=== PATIENT | female | born 1945 | race Caucasian/White ===

== ENCOUNTER 2022-11-20 16:00 | Outpatient (REF) | payer OTHER, SELFPAY | END 2022-11-20 16:01 | disposition home or self-care (01) | LOC: LBN 16:00 | PROVIDERS: Visit Provider Urology | DX: R82.998 Other abnormal findings in urine (principal); N99.81 Other intraoperative complications of genitourinary system; N32.89 Other specified disorders of bladder | CPT/HCPCS: 87077; 87086; 87186 ==

== ENCOUNTER 2022-11-24 06:00 | Day surgery (SDC) | payer OTHER, SELFPAY ==
[2022-11-24 06:13] VITALS: BP 138/76; PULSE 87; RESP 18; TEMP 36.5; O2SAT 97
--- NOTE | 2022-11-24 07:01 | W.ANESPRE ---
General Info Date of Service Date Performed: 11/24/22 Height: 4 ft 11 in Weight: 59.3 kg Body Mass Index (BMI): 26.4 Surgical Procedure: Operation Date: 11/24/22 07:40 Proposed Procedure Side Surgeon p Cystogram Kenny Chapman MD Meds Allergies and Home Medications Allergies Allergy/AdvReac Type Severity Reaction Status Date / Time acetaminophen Allergy Unverified 11/24/22 06:30 [From Tylenol-Codeine #3] codeine Allergy Unverified 11/24/22 06:30 [From Tylenol-Codeine #3] Home Medication Medication Instructions Recorded atorvastatin 40 mg tablet 40 mg PO DAILY 11/20/22 clopidogrel 75 mg tablet (Plavix) 75 mg PO DAILY 11/20/22 donepezil 5 mg tablet (Aricept) 5 mg PO DAILY 11/20/22 ferrous sulfate 325 mg (65 mg 325 mg PO DAILY 11/20/22 iron) tablet oxybutynin chloride 5 mg tablet 5 mg PO DAILY 11/20/22 pantoprazole 40 mg tablet,delayed 40 mg PO DAILY 11/20/22 release potassium chloride 20 mEq 20 meq PO DAILY 11/20/22 tablet,extended release sertraline 100 mg tablet 100 mg PO DAILY 11/20/22 [facility] Active Problems Active Problems: Problem Status Onset Code Intraoperative bladder injury N99.81 Medical History Medical History Bowel obstruction Colostomy in place GERD (gastroesophageal reflux disease) Hyperlipidemia Hypertension TIA (transient ischemic attack) Medical History Comments:: pt with indwelling davis catheter and colostomy bag in place. Surgical History Surgical History H/O bladder repair surgery H/O colectomy Tobacco Smoking/Tobacco Use Status: Never Alcohol Alcohol Intake: former Substance Use Substance use type: does not use Vital Signs and Lab Results Vital Signs Most Recent Vital Signs in EMR: Most Recent Vital Signs Temp Pulse Resp BP Pulse Ox 36.5 C 87 18 138/76 97 11/24/22 06:13 11/24/22 06:13 11/24/22 06:13 11/24/22 06:13 11/24/22 06:13 Lab Results Blood Type / Crossmatch: No Data to Display Complete Blood Count: No Data to Display Complete Metabolic Panel: No Data to Display Liver Function Panel: No Data to Display Coagulation Panel: No Data to Display Cardiac Panel: No Data to Display Arterial Blood Gas: No Data to Display Venous Blood Gas: No Data to Display Pancreas Panel: No Data to Display Thyroid Panel: No Data to Display Infectious Disease: No Data to Display Blood Cultures: No Data to Display Toxicology Panel: No Data to Display Anesthesia Assessment and Plan Anesthesia History Personal History: No History of Anesthesia Complications Family History: No Family History of Anesthesia Complications Implantable Cardiac Device Does patient have a Pacemaker or an ICD?: No
--- NOTE | 2022-11-24 07:04 | W.PM.HP.N ---
Date of service: 11/24/22 Time of Service: 07:04 Assessment and Plan Assessment and plan (1) Intraoperative bladder injury: Status: Acute Assessment and plan: We will perform a cystogram utilizing fluoroscopy and remove her catheter if her bladder injury has healed as expected. Based on her preprocedural urine culture, we will give her a preoperative dose of oral Bactrim for prophylaxis. History of Present Illness History of Present Illness Chief Complaint: Bladder injury Narrative: This is a 77-year-old woman who presented to an outside hospital with abdominal pain and bloating. She was found to have an obstructing colon lesion. She underwent a bowel resection and creation of colostomy. I do not have access to her surgical pathology just yet, but the family was told that the obstructing lesion was benign. At some point during her hospital stay, there was some type of imaging that raised the possibility of a vesicovaginal fistula. I do not have access to her old films as of yet. Intraoperatively, a bladder injury was noted. The bladder injury was closed primarily and a Davis catheter was left in place. The recommendation at the time of the patient's discharge was for a cystogram about 2 weeks after the initial surgery and catheter removal 3 weeks after the initial injury if the bladder had healed. The patient has since moved to our area to be closer to family. She presents today to have the cystogram done under fluoroscopy and potentially have her catheter removed. Review of Systems Narrative: No fevers or chills No vision change or dysphasia No diabetes or thyroid dysfunction No shortness of breath, cough or hemoptysis No chest pain or palpitations Hx GERD. Has colostomy. No nausea or vomiting No seizures, strokes or peripheral neuropathy No bleeding disorders or anemia No gout PFSH All Active Problems Intraoperative bladder injury (Acute) Medical History Bowel obstruction Colostomy in place GERD (gastroesophageal reflux disease) Hyperlipidemia Hypertension TIA (transient ischemic attack) Surgical History H/O bladder repair surgery H/O colectomy Social History Smoking/Tobacco Use Status: Never Smoking risk assessment performed?: Yes Alcohol Intake: former Substance use type: does not use Do you feel safe at home: Yes Do you feel safe in your relationship?: Yes Meds Allergies and Home Medications Allergies Allergy/AdvReac Type Severity Reaction Status Date / Time acetaminophen Allergy Unverified 11/24/22 06:30 [From Tylenol-Codeine #3] codeine Allergy Unverified 11/24/22 06:30 [From Tylenol-Codeine #3] Home Medications Medication Instructions Recorded Confirmed Type atorvastatin 40 mg tablet 40 mg PO DAILY 11/20/22 11/24/22 History clopidogrel 75 mg tablet (Plavix) 75 mg PO DAILY 11/20/22 11/24/22 History donepezil 5 mg tablet (Aricept) 5 mg PO DAILY 11/20/22 11/24/22 History ferrous sulfate 325 mg (65 mg 325 mg PO DAILY 11/20/22 11/24/22 History iron) tablet oxybutynin chloride 5 mg tablet 5 mg PO DAILY 11/20/22 11/24/22 History pantoprazole 40 mg tablet,delayed 40 mg PO DAILY 11/20/22 11/24/22 History release potassium chloride 20 mEq 20 meq PO DAILY 11/20/22 11/24/22 History tablet,extended release sertraline 100 mg tablet 100 mg PO DAILY 11/20/22 11/24/22 History Exam Const General: cooperative Resp Effort & Inspection: normal respiratory effort Auscultation: clear to auscultation bilaterally Cardio Rate: regular rate Rhythm: regular rhythm GI Palpation: soft and no masses Other: davis catheter in place Results Last Vital Signs Temp 36.5 C 11/24/22 06:13 Pulse 87 11/24/22 06:13 Resp 18 11/24/22 06:13 BP 138/76 11/24/22 06:13 Pulse Ox 97 11/24/22 06:13 Time Spent Time spent with Patient: <40 minutes Time was spent: other
[2022-11-24] MEDS: Sulfameth/Trimeth DS TAB 1 TAB PO (07:18)
[2022-11-24] MEDS: Omnipaque 300 MG/ML 50 ML BTL ×2 (07:49)
--- NOTE | 2022-11-24 07:51 | DI.RAD_ITS ---
Exam(s) RF CYSTOGRAM EXAM: RF CYSTOGRAM CLINICAL HISTORY: cystogram in OR TECHNIQUE: 2D and realtime digital imaging was performed. CONTRAST MATERIAL: Refer to procedure report. COMPARISON: No exams were available for comparison FINDINGS: Fluoroscopy was provided for Dr. Chapman during the performance of a cystogram in the OR. Please refe r to the procedure report for complete details. Ka,r=4.83 mGy IMPRESSION: RADIATION DOSE DELIVERED:
--- NOTE | 2022-11-24 07:54 | W.PM.DSUDISC ---
Date of service: 11/24/22 Time of Service: 07:54 Discharge Plan Disposition Condition: Stable Discharge Details Reason For Visit: cystogram Attending Provider: Kenny Chapman Primary Care Provider: Unknown,Unknown Home Meds and New Rx's Prescriptions: No Action clopidogrel [Plavix] 75 mg tablet 75 mg PO DAILY donepezil [Aricept] 5 mg tablet 5 mg PO DAILY ferrous sulfate 325 mg (65 mg iron) tablet 325 mg PO DAILY oxybutynin chloride 5 mg tablet 5 mg PO DAILY pantoprazole 40 mg tablet,delayed release (DR/EC) 40 mg PO DAILY sertraline 100 mg tablet 100 mg PO DAILY potassium chloride 20 mEq tablet extended release 20 meq PO DAILY atorvastatin 40 mg tablet 40 mg PO DAILY Discharge Instructions Additional Instructions: take antibiotic for 3 additional days followup 4 to 6 weeks Activity:: Activity as Tolerated Shower/Bathe:: 24 hours Diet:: As Tolerated DS: Diagnosis Discharge Diagnosis (1) Intraoperative bladder injury: Status: Acute
--- NOTE | 2022-11-24 07:55 | ROE_ITS ---
Date of service: 11/24/22 Time of Service: 07:56 Operative Note Operative Note DATE OF PROCEDURE: 11/24/22 PRE-OP DIAGNOSIS: Bladder injury POST-OP DIAGNOSIS: same PROCEDURE: cystogram SURGEON: Kenny Chapman ANESTHESIA TYPE: Local By Surgeon Refer to Anesthesia Record ESTIMATED BLOOD LOSS: 0 PATHOLOGY: none sent COMPLICATIONS: None Patient was transported to: same day Patient's condition: stable Implants: none Indications: This is a 77-year-old woman who presented to an outside hospital with abdominal distention and abdominal pain. She was found to have an obstructing lesion in the colon. She underwent exploratory laparotomy, bowel resection and creation of a colostomy. During the procedure, bladder injury was identified and was repaired primarily. The recommendation was to follow-up with a cystogram 2 weeks later and to have the catheter removed in 3 weeks. Since being discharged from the outlying facility, she has relocated to our area to be closer to her son and [id number]. The cystogram had not yet been completed so she presents now for cystogram and possible catheter removal Findings: No evidence of urinary extravasation Procedure Description: The patient was brought to the operating room/radiology suite on 11/24/2022. She was placed in the supine position. A b2b outside sales representative film was obtained using fluoroscopy. The bladder was then filled with Omnipaque through her indwelling catheter. We used gravity filling and intermittent fluoroscopy. We instilled a total of 150 cc of solution. We performed oblique and lateral films with the bladder full and after the bladder was drained. There was no evidence of extravasation or outlying of contrast in the patient's bowel. With a reassuring cystogram, we went ahead and deflated her catheter balloon and removed her catheter. She tolerated the procedure with no complications and was returned to the day surgery unit.
[2022-11-24 07:58] VITALS: BP 147/79; PULSE 96; RESP 16; TEMP 36.8; O2SAT 96
== END 2022-11-24 08:30 | disposition home or self-care (01) ==
PROVIDERS: Visit Provider Urology
PROC: 0TJB8ZZ Inspection of Bladder, Via Natural or Artificial Opening Endoscopic (ICD-10-PCS; CPT 52000; principal; 2022-11-24 07:30)
DX: Z09 Encounter for follow-up examination after completed treatment for conditions other than malignant neoplasm (principal); N99.81 Other intraoperative complications of genitourinary system
CPT/HCPCS: 51600; 74450; 74430; Q9967

== ENCOUNTER 2022-12-04 14:19 | Outpatient (REF) | payer OTHER, SELFPAY ==
[2022-12-04 16:52] LABS: Anion Gap 9.1 mmol/L (3-11); BUN 13 mg/dL (7-18); CO2 25.9 mmol/L (21.0-32.0); CREATININE 0.7 mg/dL (0.55-1.02); Calcium 8.6 mg/dL (8.5-10.1); Chloride 108 mmol/L (98-107); Estimated GFR 87.92 (mL/min/1.73m2); Glucose 93 mg/dL (74-106); Potassium 3.5 mmol/L (3.5-5.1); Sodium 143 mmol/L (136-145)
== END 2022-12-04 14:20 | disposition home or self-care (01) ==
LOC: NCHCN 14:19
PROVIDERS: Visit Provider Nurse Practitioner Family
DX: R89.8 Other abnormal findings in specimens from other organs, systems and tissues (principal)
CPT/HCPCS: 80048

== ENCOUNTER 2022-12-11 14:54 | Outpatient (REF) | payer OTHER, SELFPAY ==
[2022-12-11 16:13] LABS: HCT 38.6 % (36.0-46.0); HGB 11.9 g/dL (11.2-15.7); MCH 26.6 pg (27.0-33.0); MCHC 30.8 % (32.0-36.0); MCV 86 fL (80-95); MPV 9.2 fL (8.0-11.0); Platelet Count 314 10^3/uL (130-400); RBC 4.48 10^6/uL (3.93-5.22); RDW 16.9 % (11.7-14.6); RDW-SD 53.6 fL; WBC 5.82 10^3/uL (4.4-10.8)
[2022-12-11 16:48] LABS: ALT 37 U/L (14-59); AST 25 U/L (15-37); Albumin 3.4 g/dL (3.4-5.0); Alkaline Phosphatase 111 U/L (46-116); Anion Gap 13.3 mmol/L (3-11); BUN 12 mg/dL (7-18); Bilirubin, Total 0.2 mg/dL (0.2-1.0); CO2 22.7 mmol/L (21.0-32.0); CREATININE 0.8 mg/dL (0.55-1.02); Calcium 8.8 mg/dL (8.5-10.1); Chloride 108 mmol/L (98-107); Glucose 115 mg/dL (74-106); HDL Cholesterol 75 mg/dL (40-60); LDL CHOLESTEROL 40 mg/dL (<100); Potassium 3.8 mmol/L (3.5-5.1); Sodium 144 mmol/L (136-145); Total Protein 6.9 g/dL (6.4-8.2)
[2022-12-11 17:18] LABS: Creatine Kinase 89 U/L (26-192)
== END 2022-12-11 14:55 | disposition home or self-care (01) ==
LOC: NCHCN 14:54
PROVIDERS: Visit Provider Nurse Practitioner Family
DX: I10 Essential (primary) hypertension (principal); E78.5 Hyperlipidemia, unspecified; R79.89 Other specified abnormal findings of blood chemistry
CPT/HCPCS: 80053; 82550; 83721; 85027; 83718

== ENCOUNTER 2023-04-01 19:39 | Outpatient (REF) | payer OTHER, SELFPAY ==
[2023-04-01 20:12] LABS: Bacteria Rare HPF (Negative); C & S Indicated? C&S Done As Ordered; Casts Negative LPF (Negative); Crystals Many Amorphous HPF (Negative); Epithelial Cells Rare HPF (Negative); Mucus Negative (Negative); RBC 0-2 HPF (0-2); WBC 0-2 HPF (0-5)
[2023-04-01 20:20] LABS: Anion Gap 7.3 mmol/L (3-11); BUN 17 mg/dL (7-18); CO2 28.7 mmol/L (21.0-32.0); CREATININE 0.9 mg/dL (0.55-1.02); Calcium 9.2 mg/dL (8.5-10.1); Chloride 105 mmol/L (98-107); Estimated GFR 64.63 (mL/min/1.73m2); Glucose 107 mg/dL (74-106); Sodium 141 mmol/L (136-145)
== END 2023-04-01 19:40 | disposition home or self-care (01) ==
LOC: NCHCN 19:39
PROVIDERS: Visit Provider Nurse Practitioner Family
DX: N39.0 Urinary tract infection, site not specified (principal); I10 Essential (primary) hypertension
CPT/HCPCS: 80048; 87077; 81015; 87086; 87186

== ENCOUNTER 2023-06-02 14:52 | Outpatient (REF) | payer OTHER, SELFPAY ==
[2023-06-02 17:12] LABS: Potassium 4.1 mmol/L (3.5-5.1)
== END 2023-06-02 14:53 | disposition home or self-care (01) ==
LOC: NCHCN 14:52
PROVIDERS: PCP Nurse Practitioner Family; Visit Provider Nurse Practitioner Family
DX: R89.9 Unspecified abnormal finding in specimens from other organs, systems and tissues (principal); K21.9 Gastro-esophageal reflux disease without esophagitis; Z93.3 Colostomy status; M25.562 Pain in left knee
CPT/HCPCS: 84132

== ENCOUNTER 2023-07-15 10:15 | Day surgery (SDC) | payer MEDICARE, SELFPAY ==
--- NOTE | 2023-07-15 10:17 | HPE_ITS ---
Assessment and Plan Assessment and plan (1) Dysphasia: Status: Acute Assessment and plan: Lily is a pleasant 78-year-old female who comes in today for an EGD for some dysphagia. She has a history of peptic ulcer disease. We discussed the procedure in detail as well as the risks, benefits and complications. After conversation she seemed to have a good understanding of both the procedure as well as the possible complications and she wished to proceed. Risks, benefits and complications have been reviewed. Complications include but are not limited to bleeding, pain, perforation, sore throat, aspiration, and adverse reaction to the medications. Questions were entertained and answered to their satisfaction and they wished to proceed. No guarantees were given or implied. Stop Plavix 2 days prior to the procedure Anesthesia: general (without airway) Previous surgical intolerances: No Previous surgical complications: No Pulmonary risk factors: age > 60 Planned procedure: Yes Sleep apnea risks: No Can climb one flight of stairs (12-13 steps) in less than 30 seconds without stopping and without symptoms: Yes The surgery proposed for this patient is: low risk Active cardiac conditions: none Active risk factors: none ASA (acetylsalicylic acid): not used Beta blockers: not used Proceed with upper endoscopy under sedation (2) GERD (gastroesophageal reflux disease): Status: Chronic Qualifiers: Esophagitis presence: esophagitis presence not specified Qualified Code(s): K21.9 - Gastro-esophageal reflux disease without esophagitis History of Present Illness Narrative: Ms Becerra is a pleasant 78 year old female who is here in [facility] today for an EGD because of Dysphagia. Aracely underwent an ex-lap in October for obstructed bowel. She has a colostomy bag in place. She moved here from [place] to be closer to her son. She tells me that she has been having some difficulty swallowing although its not often. The food she has trouble with is randome. It happens maybe 1-2 times a week. When it happens she coughs and drinks some water. She has never had to regurgitate the food. No new symptoms since we saw her in the office. She tells me that she has a history of PUD. It sounds like she underwent an extensive workup, including and EGD and she was started on Medicine. She cant recall what medicine they started her on except that it was expensive and she took it 2 x a day. She is now on pantoprazole 20 mg daily. She denies any hematemesis. She has a remote history of TIA which is why she is on Plavix. I did discuss this case with her primary care physician who feels it is safe for her to stop the Plavix for 2 days prior to her procedure. She denies shortness of breath, chest pain or palpitations with activity. She is still recovering from her exploratory laparotomy in October but is slowly getting stronger. Review of Systems All systems reviewed & are unremarkable except as noted in HPI and below PFSH All Active Problems (Updated 07/15/23 @ 10:21 by Filomena Velasco MD) Dysphasia (Acute) GERD (gastroesophageal reflux disease) (Chronic) Intraoperative bladder injury (Acute) Medical History (Updated 07/15/23 @ 10:21 by Filomena Velasco MD) Arthritis Anxiety Bladder dysfunction Seasonal allergies Mixed incontinence urge and stress Colostomy in place Bowel obstruction TIA (transient ischemic attack) Per son stated this was in 2017 Hyperlipidemia Hypertension Surgical History H/O: hysterectomy H/O bladder repair surgery H/O colectomy (~10/18/22) Social History Smoking/Tobacco Use Status: Never Smoking risk assessment performed?: Yes Alcohol Intake: former Substance use type: does not use Housing: house Current gender identity: female Additional Social history: Unable to assess privately Meds Allergies and Home Medications Allergies Allergy/AdvReac Type Severity Reaction Status Date / Time codeine Allergy Psychosis Unverified 07/14/23 12:09 [From Tylenol-Codeine #3] Home Medications Medication Instructions Recorded Confirmed Type clopidogrel 75 mg tablet (Plavix) 75 mg PO DAILY 11/20/22 07/14/23 History ferrous sulfate 325 mg (65 mg 325 mg PO DAILY 11/20/22 07/14/23 History iron) tablet potassium chloride 20 mEq 20 meq PO DAILY 11/20/22 07/14/23 History tablet,extended release atorvastatin 40 mg tablet 40 mg PO DAILY 05/19/23 07/14/23 History donepezil 5 mg tablet (Aricept) 5 mg PO BID 05/19/23 07/14/23 History escitalopram oxalate 10 mg tablet 10 mg PO DAILY 05/19/23 07/14/23 History pantoprazole 40 mg tablet,delayed 20 mg PO DAILY 05/19/23 07/14/23 History release psyllium husk 0.52 gram capsule 0.52 g PO DAILY 05/19/23 07/14/23 History (Fiber (psyllium husk)) Exam Const General: comfortable and no acute distress Nutritional Appearance: average body habitus Orientation: alert and oriented x3 HENMT Head: normocephalic and atraumatic Resp Effort & Inspection: normal respiratory effort Auscultation: clear to auscultation bilaterally Cardio Rate: regular rate Rhythm: regular rhythm GI Inspection: normal to inspection Palpation: soft, no hepatosplenomegaly and nontender
--- NOTE | 2023-07-15 10:23 | ENDO_ITS ---
Date of service: 07/15/23 Endoscopy Report DATE OF PROCEDURE: 07/15/23 PRE-OP DIAGNOSIS: dysphagia PROCEDURE: EGD with biopsies SURGEON: Filomena Velasco ANESTHESIA TYPE: General:No Airway COMPLICATIONS: None DISPOSITION: same day INDICATIONS: Lily is a pleasant 78-year-old female who comes in today with some dysph agia. She has a history of peptic ulcer disease. We discussed the procedure in detail as well as the risks, benefits and complications. After conversation she seemed to have a good understanding of both the procedure as well as the possible complications and she wished to proceed. Risks, benefits and complications have been reviewed. Complications include but are not limited to bleeding, pain, perforation, sore throat, aspiration, and adverse reaction to the medications. Questions were entertained and answered to their satisfaction and they wished to proceed. No guarantees were given or implied. PROCEDURE DESCRIPTION: After informed consent was obtained the patient was take to the procedure room and placed in a supine position. Monitors were applied and a time out was done. The patients name, date of , procedure type, allergies to medications and metal in their body was reviewed. A bite block was placed and the patient was sedated. Once sedated and comfortable the gastroscope was advanced through the oropharynx which was grossly normal into the esophagus. The proximal and mid- esophagus were []. In the distal esophagus there was [] noted. The scope was advanced into the stomach and through the pylorus into the 3rd portion of the duodenum. The duodenum was noted to be []. Biopsies were done []. The scope was retracted back into the stomach and biopsies were done to rule out H. pylori. There were [] ulcers. The scope was retroflexed. The cardia and fundus were noted to be normal. There [] a hiatal hernia noted. The scope was retracted back into the esophagus and biopsies were done of the GE junction to rule out Zambrano's. The Z line was regular. The GE junction was at [] cm. The scope was removed and the patient was woken up and taken back to [facility] in stable condition. Follow up:
--- NOTE | 2023-07-15 10:24 | W.PM.DSUDISC ---
Date of service: 07/15/23 Discharge Plan Disposition Patient Disposition: Home Condition: Stable Discharge Details Reason For Visit: EGD Attending Provider: Filomena Velasco Primary Care Provider: Juli Sam Home Meds and New Rx's Prescriptions: No Action clopidogrel [Plavix] 75 mg tablet 75 mg PO DAILY ferrous sulfate 325 mg (65 mg iron) tablet 325 mg PO DAILY potassium chloride 20 mEq tablet extended release 20 meq PO DAILY donepezil [Aricept] 5 mg tablet 5 mg PO BID pantoprazole 40 mg tablet,delayed release (DR/EC) 20 mg PO DAILY psyllium husk [Fiber (psyllium husk)] 0.52 gram capsule 0.52 g PO DAILY escitalopram oxalate 10 mg tablet 10 mg PO DAILY atorvastatin 40 mg tablet 40 mg PO DAILY Discharge Instructions Additional Instructions: Findings: Follow up: Please call if you develop: fevers >101.5 Nausea or Vomiting Abdominal pain that is not transient Rectal bleeding that is more then a tbsp A hard abdomen and inability to pass gas DAY SURGERY UNIT POST ENDOSCOPY INSTRUCTIONS Instructions for everyone who is given Anesthesia: For your safety, please do the following for the next 24 Hours: a. Do not drive or operate dangerous equipment b. Do not drink alcohol beverages or use any recreational drugs for the first 24 hours or while taking pain medications. The medications in your body may have a reaction that can be dangerous. c. Do not make any important decisions or sign any important papers 1. Generally there are no restrictions on your activity after a day or so has gone by, but you may feel a bit fatigued for a few days. 2. After you arrive home you may have a light meal and return to a normal diet as you can tolerate it without feeling sick to your stomach. 3. After surgery, you may feel pain or discomfort. This should be only transient, but if it persists please contact your doctor. 4. If there are any questions regarding the findings of your procedure, please feel free to contact your doctor. 6. If you are unable to contact your doctor with a problem, contact the hospital at [phone]. 7. Continue all your regular medications unless directed otherwise. I understand the above instructions and have no questions. Signature of Patient or Responsible Adult Escort Date/Time Name of Responsible Adult Escort Signature of Nurse Date/Time Activity:: Activity as Tolerated Diet:: As Tolerated DS: Diagnosis Discharge Diagnosis (1) Dysphasia: Status: Acute (2) GERD (gastroesophageal reflux disease): Status: Chronic Asessment and Plan: Patient is seen and examined after their endoscopy. Patient has minimal sore throat. They have been able to tolerate liquids. They do not have any Nausea or Vomiting. They are not having any chest pain or shortness of breath. They have been able to pass gas and are not having any abdominal pain or distention. they have not vomited any blood. The vital signs have been stable-see nursing notes. We discussed findings on their endoscopy We reviewed the importance of lifestyle modifications- see diet recommendations We reviewed any new medications that the patient may be prescribed- see medicine reconciliation. Patient will either be sent a letter with the biopsy results or follow up in the office- see discharge instructions Patient was given explicit instructions for emergency follow up post endoscopy- see discharge instructions Patient verbalized understanding and was discharged in stable and satisfactory condition. See nursing notes.
--- OUTSIDE RECORDS SUMMARY | 2023-08-14 15:58 | XMS_ITS | Continuity of Care Document ---
Author Name Unknown Organization [facility] Address [address] [place] [address] Care Team Providers Care Beater Out Name Role Phone ARIELLA MARAVILLA Primary Care Physician Encounter [facility] NBR [id number] Date(s): 04/21/23 - 04/21/[address] [address]- [place] Encounter Diagnosis Alzheimer's disease, unspecified(Final) - Discharge Disposition: Home or Self Care Attending Physician: Khoi Leroy MD Admitting Physician: Khoi Leroy MD Referring Physician: ARIELLA MARAVILLA Allergies, Adverse Reactions, Alerts Substance Reaction Severity Status Tylenol with Codeine #3 Unknown Acti ve Assessment and Plan Future Appointments Future Scheduled Tests Radiology* MRI Brain w/o Contrast 04/08/23 Medications atorvastatin 40 mg oral tablet 40 mg = 1 tab, Oral, Daily Start Date: 02/11/23 Status: Ordered cetirizine 10 mg oral tablet 10 mg = 1 tab, Oral, Daily Start Date: 02/11/23 Status: Ordered clopidogrel 75 mg oral tablet 75 mg = 1 tab, Oral, Daily, 0 Refill(s) Start Date: 02/11/23 Status: Ordered donepezil 5 mg oral tablet 5 mg = 1 tab, Oral, Daily, 0 Refill(s) Start Date: 02/11/23 Status: Ordered escitalopram 10 mg oral tablet 30 EA, 0 Refill(s), TAKE ONE TABLET BY MOUTH EVERY DAY, 0 Refill(s) Start Date: 04/08/23 Status: Ordered ferrous sulfate 325 mg (65 mg elemental iron) oral delayed release tablet 325 mg = 1 tab, Oral, Daily Start Date: 02/11/23 Status: Ordered fluticasone 50 mcg/inh nasal spray 16 g, 0 Refill(s), SPRAY TWO SPRAYS IN EACH NOSTRIL EVERY DAY, 0 Refill(s) Start Date: 04/08/23 Status: Ordered lidocaine 5% patch 1 patches, Topical, every night at bedtime, Apply overnight remove patches after 12 hours Start Date: 02/11/23 Status: Ordered nystatin 0 Refill(s) Start Date: 02/11/23 Status: Ordered nystatin 100,000 units/g topical cream 30 g, 0 Refill(s), APPLY TO RASH IN GROINS TWO TIMES A DAY AFTER GOOD SKIN CARE, 0 Refill(s) Start Date: 04/08/23 Status: Ordered oxybutynin 5 mg oral tablet 90 EA, 0 Refill(s), TAKE ONE TABLET BY MOUTH EVERY DAY, 0 Refill(s) Start Date: 04/08/23 Status: Ordered pantoprazole 40 mg oral delayed release tablet 40 mg = 1 tab, Oral, Daily, 0 Refill(s) Start Date: 02/11/23 Status: Ordered Potassium Chloride (Srd-[id number]-Prg 10) 10 mEq oral tablet, extended release 10 mEq = 1 tab, Oral, TAKE ONE TABLET BY MOUTH EVERY DAY. TAKE AFTER A FULL MEAL, 0 Refill(s) Start Date: 02/11/23 Status: Ordered psyllium 525 mg oral capsule 525 mg = 1 cap, Oral, Daily, PRN as needed for constipation Start Date: 02/11/23 Status: Ordered Refresh 1 drops, Eye-Both, TID, PRN dry eyes, up to 3 times a day Start Date: 02/11/23 Status: Ordered sertraline 100 mg oral tablet 100 mg = 1 tab, Oral, Daily, 0 Refill(s) Start Date: 02/11/23 Status: Ordered Problem List Condition Confirmation Course Effective Dates Status H ealth Status Informant Anxiety Confirmed Active Arthritis Confirmed Active Bladder dysfunction Confirmed Active Colostomy present Confirmed Active Dysphagia Confirmed Active Forgetfulness Confirmed Active GERD (gastroesophageal reflux disease) Confirmed Active History of hysterectomy Confirmed Active Headache upon awakening Confirmed Active Hyperlipemia Confirmed Active Hypertension Confirmed Active Mixed incontinence urge and stress (male)(female) Confirmed Active Preventative health care Confirmed Active Seasonal allergies Confirmed Active TIA (transient ischemic attack) Confirmed Active Results Radiology Reports * Exam Date Time Procedure Performing Provider Status 04/21/23 11:02 AM MRI Brain w/o Contrast DomainUser, Ge nerated; Auth (Verified) Notes: (MRI Brain w/o Contrast) Reason For Exam: Vascular dementia, Alzheimer disease MRI Brain w/o Contrast EXAM DESCRIPTION: MRI Brain w/o Contrast 04/21/2023 INDICATION: VASCULAR DEMENTIA, ALZHEIMER DISEASE TECHNIQUE: Technique: Multiplanar MRI examination of the head including FLAIR and diffusion series. COMPARISON: MRI head without contrast from 06/09/2008 FINDINGS: No intracranial mass effect or midline shift. Diffusion weighted images demonstrate no focal area of acute or recent infarct. Extensive confluent periventricular and subcortical white matter T2 signal prolongation bilaterally. This was seen on remote examination and appears slightly worse since remote examination. Findings likely reflect chronic microangiopathy. Scattered small areas of T2 signal prolongation in the dileep and cerebellum bilaterally likely reflecting chronic microangiopathy as well. Multiple small ovoid foci of T2 signal prolongation in the basal ganglia region bilaterally most consistent with perivascular spaces although remote lacunar infarcts in the basal ganglia region are difficult to exclude. Small remote lacunar infarcts in the thalamus region bilaterally. No extra-axial fluid collection, hydrocephalus or blood breakdown products Cerebellar tonsil position is normal. The pituitary gland demonstrates normal morphology and signal intensity. No significant temporal horn asymmetry. Visualized vascular flow voids and cranial nerves appear within normal limits. The visualized paranasal sinuses are grossly clear. IMPRESSION: No intracranial mass effect or midline shift No acute or recent infarct on diffusion series Extensive confluent periventricular and subcortical white matter changes likely reflecting extensive chronic microangiopathy. This pattern appears slightly worse since remote examination. JOB #: [id number] Final Signed by: Neri Chicas MD Signed (Electronic Signature): 04/21/2023 11:14 am Social History Social History Type Response Tobacco Never tobacco user T obacco Use:. Sex Patient Care team information Care Team Personnel Name: ARIELLA MARAVILLA Position: No Access Member Role: Primary Care Physician Address: Address: [facility] [address] [place], [place] [id number] [place] [address]
--- OUTSIDE RECORDS SUMMARY | 2023-08-14 15:58 | XMS_ITS | Continuity of Care Document ---
Author Name Unknown Organization [facility] Address [address] [place] [address] Care Team Providers Care Dimension Stone Quarry Supervisor Name Role Phone ARIELLA MARAVILLA Dayday Primary Care Physician Encounter [facility] [id number] Date(s): 04/10/23 - 04/10/23 [facility] [address] [place] [address] [place] Discharge Disposition: Home Allergies, Adverse Reactions, Alerts Substance Reaction Severity [...] Start Date: 02/11/23 Status: Ordered Potassium Chloride ([id number]-Tbow-Ean 10) 10 mEq oral tablet, extended release [...] Active TIA (transient ischemic attack) Confirmed Active Social History Social History Type Response Tobacco Never tobacco user T obacco Use:. Sex Patient Care team information Care Team Personnel Name: RONITDaydayARIELLA Position: No Access Member Role: Primary Care Physician Address: Address: [facility] [place] [address] [place]
== END 2023-07-15 10:16 | disposition home or self-care (01) ==
LOC: SUR 08-17 10:15
PROVIDERS: PCP Nurse Practitioner Family; Visit Provider Surgery
DX: Z53.9 Procedure and treatment not carried out, unspecified reason (principal)

== ENCOUNTER 2023-09-03 14:04 | Outpatient (CLI) | payer MEDICARE, SELFPAY ==
--- OUTSIDE RECORDS SUMMARY | 2023-09-03 14:15 | XMS_ITS | Continuity of Care Document ---
Author Name Unknown Organization [facility] Address [address] [place] [phone] Care Team Providers [employer] Name Role Phone Juli Sam Primary Care Physician [phone] Pam Bhandari Unavailable Unavailable Encounter [facility] [id number] Date(s): 08/17/23 - 08/22/[address] [address] Discharge Disposition: Swing Bed Attending Physician: Tyson Bhandari DO Admitting Physician: Tyson Bhandari DO Referring Physician: Juli Sam Allergies, Adverse Reactions, Alerts Substance Reaction Severity Status Tylenol with Codeine #3 Unknown Acti ve Assessment and Plan Future Scheduled Tests Laboratory* SARS-CoV-2 (COVID-19) PCR (GeneXpert) 08/21/23 Functional Status 08/22/23 Assistive Device Gait belt Ambulation Patient Effort Good Ambulation Patient Response Tolerated Ambulation Minutes 20 08/22/23 Personal Care Provided Oral care 08/22/23 Breakfast Percent 25% 08/22/23 ADLs Complete assist Activity Status ADL HOB elevated 08/21/23 Dinner Percent 100% 08/21/23 Lunch Percent 100% 08/21/23 Living Environment Home Environment Lives In: Single level home Performed By: Amanda Mabry 08/18/2023 Lives With: Family Performed By: Amanda Mabry 08/18/2023 Living Situation: Home with family care Performed By: Amanda Mabry 08/18/2023 Lives In Single level home Lives With Family Living Situation Home with family car e Patient's Responsibilities Rehab Health and wellness, Manage Medications, Passenger, Personal ADL Detail Areas of Responsibilities Pt gets meals on wheels, son does most of the backend java developer, does not drive, is independently with ADLs, uses cane for Mod. I mobility Home Equipment Rehab Cane, Grab bars, Shower chair Number of Stairs Inside 0 Number of Stairs Outside 6 Outside Stairs Rail Bilateral Location Bed 1st floor Location Main Bathroom 1st floor Location Kitchen 1st floor Location Laundry 1st floor Prior ADL Status Independent Prior Mobility Status Independent Prior Instrumental ADL Level Assist need ed Prior Cognitive-Communication Skills Ind ependent 08/18/23 Home Barriers None 08/18/23 COVID-19 Screening None Family Member Travel History No recent t ravel Recent Travel History No recent travel Immunizations Given and Recorded Vaccine Date Status Refusal Reason influenza, unspecified formulation 06/02/23 Record ed Medications atorvastatin 40 mg oral tablet 40 mg = 1 tab, Oral, Daily, # 90 tab, 0 Refill(s) Start Date: 08/11/23 Status: Ordered cetirizine 5 mg oral tablet 5 mg = 1 tab, Oral, Daily, PRN as needed for allergy symptoms, # 30 tab, 0 Refill(s) Start Date: 08/11/23 Status: Ordered donepezil 10 mg oral tablet 10 mg = 1 tab, Oral, every night at bedtime, # 90 tab, 0 Refill(s) Start Date: 08/11/23 Status: Ordered erythromycin 500 mg oral tablet 1,000 mg = 2 tab, Oral, TID, Take 2 tabs at 1pm, 2pm and 10pm the night before your surgery, # 6 tab, 0 Refill(s), Pharmacy: [facility] #[id number], 58.9, kg, 08/07/23 12:17:00 EST, Weight Dosing Start Date: 08/10/23 Status: Ordered escitalopram 10 mg oral tablet 10 mg = 1 tab, Oral, Daily, # 30 tab, 0 Refill(s) Start Date: 08/11/23 Status: Ordered ferrous sulfate 325 mg (65 mg elemental iron) oral delayed release tablet 325 mg = 1 tab, Oral, Daily, # 90 tab, 0 Refill(s) Start Date: 08/11/23 Status: Ordered Lubricant Eye Drops ophthalmic solution 0 Refill(s) Start Date: 08/11/23 Status: Ordered metroNIDAZOLE 500 mg oral tablet 1,000 mg = 2 tab, Oral, TID, Take 2 tab at 1pm, 2pm and 10pm the day before your surgery, # 6 tab, 0 Refill(s), Pharmacy: [facility] #[id number], 58.9, kg, 08/07/23 12:17:00 EST, Weight Dosing Start Date: 08/10/23 Status: Ordered pantoprazole 20 mg oral delayed release tablet 20 mg = 1 tab, Oral, Daily, # 90 tab, 0 Refill(s) Start Date: 08/11/23 Status: Ordered potassium chloride 20 mEq oral tablet, extended release 20 mEq = 1 tab, Oral, take 1 tab three times per week, # 30 tab, 0 Refill(s) Start Date: 08/11/23 Status: Ordered psyllium 525 mg oral capsule 525 mg = 1 cap, Oral, Daily, PRN as needed for constipation, # 100 cap, 0 Refill(s) Start Date: 08/11/23 Status: Ordered Tylenol Extra Strength 500 mg oral tablet 1,000 mg = 2 tab, Oral, every 6 hr, PRN as needed for pain, 0 Refill(s) Start Date: 08/11/23 Status: Ordered Mental Status 08/20/23 Eye Opening Response Refugio Spontaneous ly Best Verbal Response Refugio Oriented Best Motor Response Refugio Obeys comman ds Refugio Coma Score 15 Problem List Condition Confirmation Course Effective Dates Status H ealth Status Informant Anxiety Confirmed Active Arthritis Confirmed Active Bladder dysfunction Confirmed Active Bladder spasm Confirmed Active Colostomy Confirmed Active Forgetful Confirmed Active GERD - Gastro-esophageal reflux disease Confirmed Active Headache Confirmed Active Hyperlipidemia Confirmed Active Hypertension Confirmed Active TIA - transient ischemic attack Confirmed Active Procedures Procedure Date Related Diagnosis Body Site Status Procedure on sigmoid colon 1 10/17/22 Completed Repair of bladder 2 10/17/22 Compl eted Carpal tunnel release Com pleted Hysterectomy Completed 1partial colectomy/colostomy. Had sigmoid resection and a partial small bowel resection. 2completed during laparotomy/bowel resection surgery. Results Laboratory List Name Date Automated Diff 08/22/23 CBC w/ Diff 08/22/23 Automated Diff 08/21/23 CBC w/ Diff 08/21/23 Automated Diff 08/21/23 CBC w/ Diff 08/21/23 ABO/Rh 08/20/23 Basic Metabolic Panel 08/18/23 ABO/Rh 08/17/23 Antibody Screen Gel 08/17/23 Basic Metabolic Panel (BMP) 08/17/23 Most recent to oldest [Reference Range]: 1 2 3 WBC [4.80-10.80 x10^3/mcL] 6.00 x10^3/mc L (08/22/23 6:20 AM) 6.70 x10^3/mcL (08/21/23 6:19 PM) 6.14 x10^3/mcL (08/21/23 6:25 AM) RBC [3.90-5.03 x10^6/mcL] 2.83 x10^6/mcL *LOW* (08/22/23 6:20 AM) 2.66 x10^6/mcL *LOW* (08/21/23 6:19 PM) 2.77 x10^6/mcL *LOW* (08/21/23 6:25 AM) Neutro Auto [40.0-74.0 /100(WBCs)] 73.7 /100(WBCs) (08/22/23 6:20 AM) 70.3 /100(WBCs) (08/21/23 6:19 PM) 76.7 /100(WBCs) *HI* (08/21/23 6:25 AM) Lymph Auto [19.0-48.0 /100(WBCs)] 10.7 /100(WBCs) *LOW* (08/22/23 6:20 AM) 15.8 /100(WBCs) *LOW* (08/21/23 6:19 PM) 12.7 /100(WBCs) *LOW* (08/21/23 6:25 AM) Reeves Auto [3.0-10.0 /100(WBCs)] 5.8 /100(WBCs) (08/22/23 6:20 AM) 7.3 /100(WBCs) (08/21/23 6:19 PM) 5.4 /100(WBCs) (08/21/23 6:25 AM) Basophil Auto [0.00-2.00 /100(WBCs)] 0.30 /100(WBCs) (08/22/23 6:20 AM) 0.40 /100(WBCs) (08/21/23 6:19 PM) 0.50 /100(WBCs) (08/21/23 6:25 AM) BUN [7-18 mg/dL] 19 mg/dL *HI* (08/18/23 6:06 AM) 16 mg/dL (08/17/23 11:20 AM) ABO/Rh Type O NEG *Unknown* (08/20/23 9:15 PM) O NEG *Unknown* (08/17/23 11:20 AM) Glucose Level [70-100 mg/dL] 93 mg/dL (08/18/23 6:06 AM) 95 mg/dL (08/17/23 11:20 AM) Potassium Level [3.5-5.1 mEq/L] 3.7 mEq/L (08/18/23 6:06 AM) 3.8 mEq/L (08/17/23 11:20 AM) Baso Absolute [0.00-0.20 x10^3/mcL] 0.02 x10^3/mcL (08/22/23 6:20 AM) 0.03 x10^3/mcL (08/21/23 6:19 PM) 0.03 x10^3/mcL (08/21/23 6:25 AM) MCV [81.0-99.0 fL] 89.4 fL (08/22/23 6:20 AM) 88.7 fL (08/21/23 6:19 PM) 89.9 fL (08/21/23 6:25 AM) MCHC [33.0-36.0 g/dL] 33.6 g/dL (08/22/23 6:20 AM) 33.9 g/dL (08/21/23 6: PM) 33.7 g/dL (08/21/23 6:25 AM) Sodium Level [136-145 mEq/L] 143 mEq/L (08/18/23 6:06 AM) 137 mEq/L (08/17/23 11:20 AM) Lymph Absolute [1.20-3.40 x10^3/mcL] 0.64 x10^3/mcL *LOW* (08/22/23 6:20 AM) 1.06 x10^3/mcL *LOW* (08/21/23 6: PM) 0.78 x10^3/mcL *LOW* (08/21/23 6:25 AM) Hct [36.0-46.0 %] 25.3 % *LOW* (08/22/23 6:20 AM) 23.6 % *LOW* (08/21/23 6:19 PM) 24.9 % *LOW* (08/21/23 6:25 AM) Calcium Level [8.5-10.1 mg/dL] 9.5 mg/dL (08/18/23 6:06 AM) 9.4 mg/dL (08/17/23 11:20 AM) Reeves Absolute [0.11-0.70 x10^3/mcL] 0.35 x10^3/mcL (08/22/23 6:20 AM) 0.49 x10^3/mcL (08/21/23 6:19 PM) 0.33 x10^3/mcL (08/21/23 6:25 AM) MCH [27.1-32.0 pg] 30.0 pg (08/22/23 6:20 AM) 30.1 pg (08/21/23 6:19 PM) 30.3 pg (08/21/23 6:25 AM) Neutro Absolute [1.20-6.70 x10^3/mcL] 4.42 x10^3/mcL (08/22/23 6:20 AM) 4.70 x10^3/mcL (08/21/23 6:19 PM) 4.71 x10^3/mcL (08/21/23 6:25 AM) Hgb [12.0-15.5 g/dL] 8.5 g/dL *LOW* (08/22/23 6:20 AM) 8.1 g/dL *LOW* (08/21/23 6:19 PM) 8.4 g/dL *LOW* (08/21/23:25 AM) MPV [6.0-10.0 fL] 9.2 fL (08/22/23 6:20 AM) 9.2 fL (08/21/23 6:19 PM) 9.8 fL (08/21/23 6:25 AM) Platelets [150-400 x10^3/mcL] 188 x10^3/mcL (08/22/23 6:20 AM) 160 x10^3/mcL (08/21/23 6:19 PM) 159 x10^3/mcL (08/21/23 6:25 AM) CO2 [21-31 mEq/L] 35 mEq/L *HI* (08/18/23 6:06 AM) 24 mEq/L (08/17/23 11:20 AM) Eos Absolute [0.00-0.70 x10^3/mcL] 0.34 x10^3/mcL (08/22/23 6:20 AM) 0.27 x10^3/mcL (08/21/23 6:19 PM) 0.21 x10^3/mcL (08/21/23 6:25 AM) eGFR Non-AA [>=60 mL/min/1.73 m2] 48 mL/min/1.73 m2 *LOW* (08/18/23 6:06 AM) 63 mL/min/1.73 m2 (08/17/23 11:20 AM) eGFR AA [>=60 mL/min/1.73 m2] 59 mL/min/1.73 m2 *LOW* (08/18/23 6:06 AM) 76 mL/min/1.73 m2 (08/17/23 11:20 AM) Chloride Level [98-107 mEq/L] 102 mEq/L (08/18/23 6:06 AM) 101 mEq/L (08/17/23 11:20 AM) BUN/Creat Ratio 17 ratio *NA* (08/18/23 6:06 AM) 18 ratio *NA* (08/17/23 11:20 AM) Imm Gran Absolute [0.00-0.04 x10^3/mcL] 0.23 x10^3/mcL *HI* (08/22/23 6:20 AM) 0.15 x10^3/mcL *HI* (08/21/23 6:19 PM) 0.08 x10^3/mcL *HI* (08/21/23 6:25 AM) Imm Gran Auto 3.8 /100(WBCs) *NA* (08/22/23 6:20 AM) 2.2 /100(WBCs) *NA* (08/21/23 6:19 PM) 1.3 /100(WBCs) *NA* (08/21/23 6:25 AM) Creatinine Level [0.55-1.02 mg/dL] 1.09 mg/dL *HI* (08/18/23 6:06 AM) 0.87 mg/dL (08/17/23 11:20 AM) Antibody Screen Gel Negative ABSC (08/17/23 11:20 AM) RDW-CV [11.6-14.8 %] 13.1 % (08/22/23 6:20 AM) 13.0 % (08/21/23 6:19 PM) 13.1 % (08/21/23 6:25 AM) Anion Gap [5-15 mEq/L] 10 mEq/L (08/18/23 6:06 AM) 16 mEq/L *HI* (08/17/23 11:20 AM) Eos, Auto [1.0-7.0 /100(WBCs)] 5.7 /100(WBCs) (08/22/23 6:20 AM) 4.0 /100(WBCs) (08/21/23 6:19 PM) 3.4 /100(WBCs) (08/21/23 6:25 AM) Vital Signs Most recent to oldest [Reference Range]: 1 2 3 4 5 Temperature Oral [35.8-37.3 Deg C] 37.4 Deg C *HI* (08/22/23 7:40 AM) 36.8 Deg C (08/22/23 4:49 AM) 36.7 Deg C (08/22/23 12:59 AM) Temperature Oral (DegF) [96.4-99.1 Deg F] 98.24 Deg F (08/22/23 4:49 AM) 98.24 Deg F (08/21/23 7:24 PM) 98.42 Deg F (08/20/23 5:49 PM) Temperature Tympanic [36.6-38.1 Deg C] 36.5 Deg C *LOW* (08/17/23 10:13 AM) Apical Heart Rate [60-100 bpm] 91 bpm (08/17/23 10:13 AM) Peripheral Pulse Rate [60-100 bpm] 79 bpm (08/22/23 7:40 AM) 75 bpm (08/21/23 7:24 PM) 82 bpm (08/21/23 3:28 PM) Heart Rate Monitored [60-100 bpm] 67 bpm (08/22/23 4:49 AM) 81 bpm (08/22/23 12:59 AM) 79 bpm (08/21/23 6:16 AM) Respiratory Rate [12-24 br/min] 16 br/min (08/22/23 7:40 AM) 18 br/min (08/22/23 4:49 AM) 18 br/min (08/22/23 12:59 AM) Blood Pressure [90-140/60-90 mmHg] 134/62mmHg (08/22/23 7:40 AM) 126/55mmHg (08/22/23 4:49 AM) 126/53mmHg (08/22/23 12:59 AM) Mean Arterial Pressure, Cuff [70-110 mmHg] 81 mmHg (08/21/23 7:24 PM) 93 mmHg (08/20/23 5:49 PM) 91 mmHg (08/20/23 12:00 PM) Blood Pressure Location Left arm (08/22/23 7:40 AM) Left arm (08/21/23 7:24 PM) Left arm (08/21/23 3:28 PM) Blood Pressure Method Automatic (08/22/23 7:40 AM) Automatic (08/21/23 7:24 PM) Automatic (08/21/23 3:28 PM) Weight Measured (lbs) 137.789 lb (08/22/23 5:34 AM) Weight Dosing 56.400 kg (08/17/23 10:13 AM) BSA Measured 1.57 m2 (08/21/23 8:16 AM) 0 m2 (08/20/23 10:25 AM) 1.57 m2 (08/19/23 8:25 AM) Body Mass Index 27.74 kg/m2 (08/21/23 8:16 AM) 27.69 kg/m2 (08/19/23 8:25 AM) Height 147.32 cm (08/21/23 8:16 AM) 147.32 cm (08/21/23 8:16 AM) 147.32 cm (08/21/23 8:16 AM) 147.32 cm (08/21/23 8:16 AM) Weight 62.5 kg (08/22/23 5:34 AM) 60.2 kg (08/21/23 8:16 AM) 60.2 kg (08/21/23 8:16 AM) 60.2 kg (08/21/23 8:16 AM) 60.2 kg (08/21/23 8:16 AM) Social History Social History Type Response Tobacco Never tobacco user T obacco Use:. Sex Female Progress note * Tyson Bhandari DO: PERFORM Event Display: Progress Note - Physician Authored Date: [id number] NELIA QURESHI :1945 Age:78 years Sex:Female Visit Date:08/17/2023 Primary Care Physician: Juli Sam The patient is doing well today. ??She still has bowel movements she is still incontinent of stool but she is having no nausea or vomiting.?? She is tolerating her diet.?? She is quite comfortable.??Stools are brown. Objective Vitals & Measurements T:??37.4?C ??(Oral)?? TMIN:??36.7?C ??(Oral)?? TMAX:??37.4?C ??(Oral)?? HR:??79??(Peripheral)?? RR:??16?? BP:??134/62?? SpO2:??93%?? WT:??62.5??kg?? Pain Score:??0?? O2 Therapy:??Room air?? Physical Exam Heart is regular. ??Lungs are clear and equal. ??Abdomen is soft and nontender. ??The dressings were taken down and the wounds are all healthy with no signs of infection.?? Bowel sounds are normal active without distention. Lab Results Hemoglobin 8.5. Assessment/Plan Ordered: Diet Order, 08/21/23 17:25:00 EST, Regular The patient is doing quite well and I think can be??discharged from acute care.?? I do think thoughthat she could benefit from swing bed status from a physical therapy??standpoint.?? Will go ahead and set that up.?? Hemoglobin stabilized at 8.5. Electronically Signed on 08/22/23 10:07 AM Tyson Bhandari DO * Tyson Bhandari DO: PERFORM Event Display: Progress Note - Physician Authored Date: [id number] NELIA QURESHI :1945 Age:78 years Sex:Female Visit Date:08/17/2023 Primary Care Physician: Juli Sam The patient has done quite well today.?? She is having brown bowel movements with no signs of blood.?? She has been getting up out of bed fine.?? She is still incontinent of stool and urine.?? She istolerating a full liquid diet without nausea. Objective Vitals & Measurements T:??36.8?C ??(Oral)?? TMIN:??36.6?C ??(Oral)?? TMAX:??36.9?C ??(Oral)?? HR:??82??(Peripheral)?? RR:??18?? BP:??143/71?? SpO2:??96%?? HT:??147.32??cm?? HT:??147.32??cm?? HT:??147.32??cm?? HT:??147.32??cm?? WT:??60.2??kg?? WT:??60.2??kg?? WT:??60.2??kg?? WT:??60.2??kg?? BMI:??27.74?? PainScore:??0?? O2 Therapy:??Room air?? BSA:??1.57?? Physical Exam Heart is regular. ??Lungs are clear and equal. ??Abdomen is soft and nontender. Assessment/Plan Ordered: Protonix, 40 mg, IV Piggyback, Powder-Inj, every 12 hr, Administer over: 15 minutes, First Dose: 08/20/23 19:00:00 EST, Routine, 400 mL/hr, 08/20/23 19:00:00 EST CBC w/ Diff, Blood, Routine, 08/21/23 16:00:00 EST, Once, Lab Collect Diet Order, 08/21/23 17:25:00 EST, Regular SARS-CoV-2 (COVID-19) PCR (GeneXpert), Nasopharyngeal Swab, Routine Collect, *Est. 08/21/23, Once, Nurse collect, Order for future visit, Print Label, Preop testing Patient is doing well. ??Will advance her to a regular diet.?? Will check an H&H on her this evening although looks like the bleeding??has stopped.?? Will see how she is doing tomorrow but possibly place her in a swing bed tomorrow. Electronically Signed on 08/21/23 05:28 PM Tyson Bhandari DO * Tyson Bhandari DO: PERFORM Event Display: Progress Note - Physician Authored Date: [id number] NELIA QURESHI :1945 Age:78 years Sex:Female Visit Date:08/17/2023 Primary Care Physician: Juli Sam Subjective The patient had an eventful night. ??She has had no further bowel movements. ??She has had no further nausea and feels quite good.?? She is tolerating her liquids and in fact did get a yogurt this morning despite having??a clear liquid diet order and tolerated that just fine.?? Her hemoglobin drifted down to 8.5 last night??but remained stable at 8.4 this morning. Objective Vitals & Measurements T:??36.6?C ??(Oral)?? TMIN:??36.6?C ??(Oral)?? TMAX:??36.9?C ??(Oral)?? HR:??79??(Monitored)?? RR:??17?? BP:??133/61?? SpO2:??96%?? WT:??60.2??kg?? Pain Score:??0?? O2 Therapy:??Room air?? BSA:??0?? Physical Exam It is regular. ??Lungs are clear and equal. ??Abdomen is soft and nontender with good bowel sounds. Lab Results White count is normal.?? Hemoglobin of 8.4. Assessment/Plan Ordered: Protonix, 40 mg, IV Piggyback, Powder-Inj, every 12 hr, Administer over: 15 minutes, First Dose: 08/20/23 19:00:00 EST, Routine, 400 mL/hr, 08/20/23 19:00:00 EST CBC w/ Diff, Blood, Routine, 08/21/23 16:00:00 EST, Once, Lab Collect Diet Order, 08/21/23 8:13:00 EST, Full Liquid The patient is doing reasonably well and we will advance her again to a full liquid diet.?? My concern is that she did have a upper GI bleed.?? I have stopped the Lovenox and the Toradol. ??Will makesure she is ambulating using the SCDs for DVT prophylaxis.?? She is also on Protonix twice a day.??I put some thought into whether to do an EGD on her sometime in the next couple days, but I think if she shows no further signs of bleeding, I am going to hold off on doing that for a little bit??only because??she does still have a little bit of an ileus??and??I am??not sure if her stomach is emptying completely which would put her at risk for aspiration??with sedation.?? Obviously if she shows signs of further bleeding??we will need to??just proceed with the EGD. Electronically Signed on 08/21/23 08:20 AM Tyson Bhandari DO Patient Care team information Care Team Personnel Name: Pam Bhandari Position: Ambulatory - Wire Machine Operator Member Role: Wire Machine Operator Name: Juli Sam Position: No Access Member Role: Primary Care Physician Address: Address: [address] [place] [address]
--- OUTSIDE RECORDS SUMMARY | 2023-09-03 14:15 | XMS_ITS | Continuity of Care Document ---
Author Name Unknown Organization [facility] Address [address] [place] [phone] Care Team Providers Care Assisted Living Coordinator Name Role Phone Juli Sam Dayday Primary Care Physician Pam Bhandari Unavailable Unavailable Encounter [facility] [id number] Date(s): 09/02/23 - 09/02/[address] [address] Encounter Diagnosis Low blood potassium(Discharge Diagnosis) - 09/02/23 Discharge Disposition: Home or Self Care Allergies, Adverse Reactions, Alerts Substance Reaction Severity Status Tylenol with Codeine #3 Unknown Acti ve Assessment and Plan Future Appointments Future Scheduled Tests Laboratory* SARS-CoV-2 (COVID-19) PCR (GeneXpert) 08/21/23 Immunizations Given and Recorded Vaccine Date Status [...] 0 Refill(s) Start Date: 08/11/23 Status: Ordered escitalopram 10 mg oral tablet [...] 0 Refill(s) Start Date: 08/11/23 Status: Ordered pantoprazole 20 mg oral delayed [...] 0 Refill(s) Start Date: 08/11/23 Status: Ordered Problem List Condition Confirmation Course [...] bowel resection. 2completed during laparotomy/bowel resection surgery. Social History Social History Type Response Tobacco Never tobacco user T obacco Use:. Sex Female Patient Care team information Care Team Personnel Name: Pam Bhandari Position: Ambulatory - Vibrating Screed Operator Member Role: Vibrating Screed Operator Name: Juli Sam Position: No Access Member Role: Primary Care Physician Address: Address: [address] [place] [address]
--- OUTSIDE RECORDS SUMMARY | 2023-09-03 14:15 | XMS_ITS | Continuity of Care Document ---
Author Name Unknown Organization [facility] Address [address] [place] [phone] Care Team Providers Care Monotyper Name Role Phone Juli Sam Primary Care Physician [phone] Pam Bhandari Unavailable Unavailable Encounter [facility] [id number] Date(s): 09/02/23 - 09/02/[address] [address]- [place] Discharge Disposition: Home or Self Care Allergies, [...] Personnel Name: Pam Bhandari Position: Ambulatory - Act English Tutor Member Role: Act English Tutor Name: Juli Sam Position: No Access Member Role: Primary Care Physician Address: Address: [address] [place] [address]
--- OUTSIDE RECORDS SUMMARY | 2023-09-03 14:15 | XMS_ITS | Continuity of Care Document ---
Author Name Unknown Organization [facility] Address [address] [place] [address] Care Team Providers Care Fruit Vendor Name Role Phone Juli Sam Primary Care Physician Pam Bhandari Unavailable Unavailable [facility]counter [facility] [id number] Date(s): 08/22/23 - 08/25/[address] [id number] Discharge Disposition: Home or Self Care Attending Physician: Tyson Bhandari DO Admitting Physician: Tyson Bhandari DO Referring Physician: Juli Sam Allergies, Adverse Reactions, Alerts Substance Reaction Severity Status Tylenol with Codeine #3 Unknown Acti ve Assessment and Plan Future Appointments Future Scheduled Tests Laboratory* SARS-CoV-2 (COVID-19) PCR ([facility]) 08/21/23 Functional Status 08/25/23 Home Equipment Cane 08/25/23 Lunch Percent 100% 08/25/23 Personal Care Provided Diaper/Brief escalera ged, Hair care, Lotion, Adele care, Other: put pt in her clean clothes and packed her belongings to go home. 08/25/23 ADLs Complete assist Activity Status ADL HOB elevated 08/25/23 Breakfast Percent 100% 08/24/23 Dinner Percent 25% 08/24/23 Living Environment Home Environment *ADL: Independent Performed By: Marilee Caceres OT 08/24/2023 *Cognitive-Communication Skills: Independent Performed By: Marilee Caceres OT 08/24/2023 *Instrumental ADL: Assist needed Performed By: Marilee Caceres OT 08/24/2023 *Mobility: Independent Performed By: Marilee Caceres OT 08/24/2023 Detail Areas of Responsibilities: Has assistance from son with IADLs, independent with ADLs and functional mobility (has cane but prefers not to use) Performed By: Marilee Caceres OT 08/24/2023 Lives In: Multilevel home Performed By: Marilee Caceres OT 08/24/2023 Lives With: Other: Son & dtr in law who is an RN Performed By: Marilee Caceres OT 08/24/2023 Living Situation: Home with family care, Other: Mold Shop Supervisor care CFI supports via [facility] Performed By: Marilee Caceres OT 08/24/2023 Patient's Responsibilities: Community mobility, management accounts manager, Health and wellness, Home management, Leisure/Play/Hobbies, Manage Medications, Meal preparation, Passenger, Personal ADL, Retired, Social participation, Unemployed Performed By: Marilee Caceres OT 08/24/2023 Devices/Equipment at Home: Cane Performed By: Khadra Rain 08/24/2023 Lives In Multilevel home Lives With Other: Son & dtr in law who is an RN Living Situation Home with family car e, Other: Mold Shop Supervisor care CFI supports via [facility] Patient's Responsibilities Rehab Persona l ADL Number of Stairs Outside 3 Outside Stairs Rail Bilateral Prior ADL Status Independent Prior Mobility Status Assist needed Prior Instrumental ADL Level Assist need ed Prior Cognitive-Communication Skills Ass ist needed 08/24/23 Detail Areas of Responsibilities Has ass istance from son with IADLs, independent with ADLs and functional mobility (has cane but prefers not to use) 08/24/23 Patient's Responsibilities Health and we llness, Meal preparation, Passenger, Personal ADL 08/24/23 Time Up in Chair 60 08/23/23 Positioning/Pressure Reducing Devices Pi llow 08/23/23 Assistive Device Gait belt Ambulation Patient Effort Fair Ambulation Minutes 10 08/22/23 Family Member Travel History No recent t [...] Start Date: 08/11/23 Status: Ordered Mental Status 08/24/23 Eye Opening Response [place] Spontaneous ly Best Verbal Response Refugio Oriented Best Motor Response [place] Obeys comman ds [place] Coma Score 15 Problem List Condition Confirmation [...] Results Laboratory List Name Date Automated Diff 08/24/23 Basic Metabolic Panel (BMP) 08/24/23 CBC w/ Diff 08/24/23 Most recent to oldest [Reference Range]: 1 WBC [4.80-10.80 x10^3/mcL] 6.93 x10^3/mc L (08/24/23 6:21 AM) RBC [3.90-5.03 x10^6/mcL] 2.81 x10^6/mcL *LOW* (08/24/23 6:21 AM) Neutro Auto [40.0-74.0 /100(WBCs)] 74.5 /100(WBCs) *HI* (08/24/23 6:21 AM) Lymph Auto [19.0-48.0 /100(WBCs)] 12.0 / 100(WBCs) *LOW* (08/24/23 6:21 AM) [place] Auto [3.0-10.0 /100(WBCs)] 6.5 /100 (WBCs) (08/24/23 6:21 AM) Basophil Auto [0.00-2.00 /100(WBCs)] 0.3 0 /100(WBCs) (08/24/23 6:21 AM) BUN [7-18 mg/dL] 10 mg/dL (08/24/23 6:21 AM) Glucose Level [70-100 mg/dL] 104 mg/dL *HI* (08/24/23 6:21 AM) Potassium Level [3.5-5.1 mEq/L] 2.4 mEq/ L 1 *CRIT* (08/24/23 6:21 AM) Baso Absolute [0.00-0.20 x10^3/mcL] 0.02 x10^3/mcL (08/24/23 6:21 AM) MCV [81.0-99.0 fL] 90.0 fL (08/24/23 6:21 AM) MCHC [33.0-36.0 g/dL] 34.0 g/dL (08/24/23 6:21 AM) Sodium Level [136-145 mEq/L] 144 mEq/L (08/24/23 6:21 AM) Lymph Absolute [1.20-3.40 x10^3/mcL] 0.8 3 x10^3/mcL *LOW* (08/24/23 6:21 AM) Hct [36.0-46.0 %] 25.3 % *LOW* (08/24/23 6:21 AM) Calcium Level [8.5-10.1 mg/dL] 7.7 mg/dL *LOW* (08/24/23 6:21 AM) [place] Absolute [0.11-0.70 x10^3/mcL] 0.45 x10^3/mcL (08/24/23 6:21 AM) MCH [27.1-32.0 pg] 30.6 pg (08/24/23 6:21 AM) Neutro Absolute [1.20-6.70 x10^3/mcL] 5. 17 x10^3/mcL (08/24/23 6:21 AM) Hgb [12.0-15.5 g/dL] 8.6 g/dL *LOW* (08/24/23 6:21 AM) MPV [6.0-10.0 fL] 9.6 fL (08/24/23 6:21 AM) Platelets [150-400 x10^3/mcL] 217 x10^3/ mcL (08/24/23 6:21 AM) CO2 [21-31 mEq/L] 32 mEq/L *HI* (08/24/23 6:21 AM) Eos Absolute [0.00-0.70 x10^3/mcL] 0.35 x10^3/mcL (08/24/23 6:21 AM) eGFR Non-AA [>=60 mL/min/1.73 m2] 116 mL /min/1.73 m2 (08/24/23 6:21 AM) eGFR AA [>=60 mL/min/1.73 m2] 141 mL/min /1.73 m2 (08/24/23 6:21 AM) Chloride Level [98-107 mEq/L] 104 mEq/L (08/24/23 6:21 AM) BUN/Creat Ratio 20 ratio *NA* (08/24/23 6:21 AM) Imm Gran Absolute [0.00-0.04 x10^3/mcL] 0.11 x10^3/mcL *HI* (08/24/23 6:21 AM) Imm Gran Auto 1.6 /100(WBCs) *NA* (08/24/23 6:21 AM) Creatinine Level [0.55-1.02 mg/dL] 0.51 mg/dL *LOW* (08/24/23 6:21 AM) RDW-CV [11.6-14.8 %] 13.2 % (08/24/23 6:21 AM) Anion Gap [5-15 mEq/L] 10 mEq/L (08/24/23 6:21 AM) Eos, Auto [1.0-7.0 /100(WBCs)] 5.1 /100( WBCs) (08/24/23 6:21 AM) 1Result Comment: Critical value verified and results called to Dottie Francisco RN [employer] and read backat 08/24/2023 07:17:40 EST by tech: SUSANA Moeller Vital Signs Most recent to oldest [Reference Range]: 1 2 3 Temperature Oral [35.8-37.3 Deg C] 36.9 Deg C (08/25/23 9:05 AM) 36.9 Deg C (08/24/23 7:51 AM) 36.8 Deg C (08/24/23 12:38 AM) Temperature Oral (DegF) [96.4-99.1 Deg F] 98.78 Deg F (08/23/23 4:31 PM) 98.78 Deg F (08/23/23 4:01 AM) Peripheral Pulse Rate [60-100 bpm] 85 bpm (08/25/23 9:05 AM) 86 bpm (08/24/23 7:51 AM) 87 bpm (08/23/23 7:38 AM) Heart Rate Monitored [60-100 bpm] 80 bpm (08/24/23 12:38 AM) 95 bpm (08/23/23 4:31 PM) 92 bpm (08/23/23 4:01 AM) Respiratory Rate [12-24 br/min] 24 br/min (08/25/23 9:05 AM) 18 br/min (08/24/23 7:51 AM) 17 br/min (08/24/23 12:38 AM) Blood Pressure [90-140/60-90 mmHg] 126/68mmHg (08/25/23 9:05 AM) 121/61mmHg (08/24/23 7:51 AM) 126/60mmHg (08/24/23 12:38 AM) Mean Arterial Pressure, Cuff [70-110 mmHg] 78 mmHg (08/23/23 4:01 AM) Blood Pressure Location Left arm (08/25/23 9:05 AM) Left arm (08/24/23 12:38 AM) Left arm (08/23/23 4:31 PM) Blood Pressure Method Automatic (08/25/23 9:05 AM) Automatic (08/24/23 12:38 AM) Automatic (08/23/23 4:31 PM) Mean Arterial Pressure Cuff 68 mmHg (08/23/23 4:31 PM) Weight Measured (lbs) 138.671 lb (08/23/23 4:55 AM) Weight Dosing 62.900 kg (08/23/23 4:55 AM) BSA Measured 1.54 m2 (08/25/23 8:46 AM) Body Mass Index 26.69 kg/m2 (08/25/23 8:46 AM) Height 147.3 cm (08/25/23 8:46 AM) 147.3 cm (08/25/23 8:46 AM) Weight 57.9 kg (08/25/23 8:46 AM) 57.9 kg (08/25/23 8:46 AM) 57.9 kg (08/24/23 6:17 AM) Social History Social History Type Response Tobacco Never tobacco user T obacco Use:. Sex Female Discharge instructions * Estella Coates: PERFORM Event Display: Discharge Instructions Authored Date: [id number] NELIA QURESHI :1945 Age:78 years Sex:Female Visit Date:08/22/2023 Primary Care Physician: Juli [facility] Discharge Instructions We would like to thank you for allowing us to assist you with your healthcare needs. The following includes patient education materials and information regarding your injury/illness. Your Next Steps Instructions From Your Care Team Incisions:?? - Some bruising, swelling, pain and soreness is expected. Symptoms that are worsening are not expected and you should call Dr. Bhandari. - Keep incisions clean and dry, but they do??NOT need to be covered. It is okay to shower, but no tub bathing/swimming for one week from surgery date. Pat-dry the incisions when drying.?? - Call DrIliana??Thony if you experience worsening pain, swelling, redness, pus, bleeding or fever>101.?? - Go to the Emergency Department for chest pain, shortness of breath, difficulty breathing or changes in mental status.? For next few days: -Call and schedule follow-up appointment to be seen next week. -For shortness of breath, chest pain, altered mental status, high fevers or inability to urinate??please go to the emergency department. ? Diet: - Eat and drink normally, but go slowly with frequency and quantity.? Medications:?? - Resume all of your regular home medications. ? Activity: - Light activity and work without any strenuous activity or heavy lifting until cleared at followup. ? Pain:?? -Tylenol and/or ibuprofen as needed. -Ice and heat, if desired,??are okay as well ? For mild irritation at needle site where your iv was removed: ?? Apply warm, moist pack to area for 20 minutes four times a day for 2-3 days. ?? Call physician if persistent redness, increasing redness or fever and/or drainage at needle siteoccurs. ? If you have any problems, concerns or questions after surgery, do not hesitate to contact your physician's office or the Emergency Room if needed at [phone]. ?? For emergencies, call 911.? Dr. Reaves's office number for scheduling or non-emergent questions/concerns: Call [phone] Scheduled Future Appointments Thursday 12:30 PM EST ?? Medications What How Much When Instructions Next Dose Unchanged acetaminophen (Tylenol Extra Strength 500 mg oral tablet) 2 tab Oral (given by mouth) Every 6 hours as needed for as needed for pain Unchanged atorvastatin (atorvastatin 40 mg oral tablet) 1 tab Oral (given by mouth) Every day Unchanged cetirizine (cetirizine 5 mg oral tablet) 1 tab Oral (given by mouth) Every day as needed for as needed for allergy symptoms Unchanged donepezil (donepezil 10 mg oral tablet) 1 tab Oral (given by mouth) Every night at bedtime Unchanged escitalopram (escitalopram 10 mg oral tablet) 1 tab Oral (given by mouth) Every day Unchanged ferrous sulfate (ferrous sulfate 325 mg (65 mg elemental iron) oral delayed release tablet) 1 tab Oral (given by mouth) Every day Unchanged ocular lubricant (Lubricant Eye Drops ophthalmic solution) Unchanged pantoprazole (pantoprazole 20 mg oral delayed release tablet) 1 tab Oral (given by mouth) Every day Unchanged potassium chloride (potassium chloride 20 mEq oral tablet, extended release) 1 tab Oral (given by mouth) take 1 tab three times per week ?? Unchanged psyllium (psyllium 525 mg oral capsule) 1 Capsules Oral (given by mouth) Every day as needed for as needed for constipation ?? What How Much When Why Comments Stop Taking erythromycin (erythromycin 500 mg oral tablet) 2 tab Oral (given by mouth) 3 times a day Diverticulitis Take 2 tabs at 1pm, 2pm and 10pm the night before your surgery ?? Stop Taking metroNIDAZOLE (metroNIDAZOLE 500 mg oral tablet) 2 tab Oral (given by mouth) 3 times a day Diverticulitis Take 2 tab at 1pm, 2pm and 10pm the day before your surgery ?? Your Summary Your Care Team Admitting Physician - Tyson Bhandari DO Attending Physician - Tyson Bhandari DO Primary Care Physician - Juli Sam Referring Physician - Juli Sam Problems Ongoing - Any problem that you are currently receiving treatment for. Anxiety Arthritis Bladder dysfunction Bladder spasm Colostomy Forgetful GERD - Gastro-esophageal reflux disease Headache Hyperlipidemia Hypertension TIA - transient ischemic attack Tests Performed/Pending Automated Diff BMP CBC w/ Diff Discharge Vitals Temperature??(Oral) 98.4 ??F (36.9 ??C) Heart Rate??(Peripheral) 85 Respiratory Rate?? 24 Blood Pressure?? 126/68?? Height?? 57.99 in (147.3 cm) Height?? 57.99 in (147.3 cm) Weight?? 127.67 lb (57.9 kg) Weight?? 127.67 lb (57.9 kg) BMI?? 26.69 Allergies Tylenol with Codeine #3 Patient/Spot Welder Signature Patient Name:NELIA QURESHI I have received this information and my questions have been answered. Patient/Spot Welder Name: Patient/Spot Welder Signature: Relationship to Patient: Witness Name/Signature: Date: Electronically Signed on: 08/25/2023 12:57 PM EST Signed by: [facility] note * Maykel Revaes MD: PERFORM Event Display: Surgery Progress Note Authored Date: [id number] NELIA QURESHI :1945 Age:78 years Sex:Female Visit Date:08/22/2023 Primary Care Physician: Juli Sam History of Present Illness Patient is postop a week. ??She is having bowel function. ??She has no pain.?? She has no complaints at the bedside. ??She is tolerating a regular diet.?? Nursing staff reports she continues to have loose stools. Physical Exam Vitals & Measurements T:??36.9?C ??(Oral)?? TMIN:??36.8?C ??(Oral)?? TMAX:??37.1?C ??(Oral)?? HR:??86??(Peripheral)?? RR:??18?? BP:??121/61?? SpO2:??93%?? WT:??57.9??kg?? Pain Score:??0?? O2 Therapy:??Room air?? General: Nontoxic, comfortable and interactive ?? Neuro: Alert and oriented ?? Psych: Good mood and affect,??seemingly good insight and understanding. ?? Chest: Nonlabored breathing ?? Heart: Regular ?? Abdomen: Soft, nondistended and nontender. ??Her incision sites look perfect. ??Trey are intact.??There is no erythema. ? Assessment/Plan Ordered: potassium chloride, 40 mEq = 2 tab, Oral, Tab-ER, Daily, First Dose: 08/24/23 10:00:00 EST, Physician Stop, Routine, 08/24/23 10:00:00 EST Vital Signs, 08/22/23 19:00:00 EST, Daily, Only when awake ?? 78-year-old woman postop 1 week from colostomy takedown.?? She looks great and is doing well.?? Forsome reason routine lab work was performed this morning which showed hypokalemia.?? She is on a regular diet??and we will make sure she has??an increase in her oral potassium.?? It looks like she take s??oral??potassium as a home medication??at baseline??and so I have added that back in??to her oralmedication??regimen. ?? She is hemodynamically stable and looks good. ?? Her hemoglobin remained stable. ? Overall plan: ?? Continue working with PT and OT. ?? Encourage increased p.o. intake.?? Will add??protein to her diet.?? Continue oral??medications??(iron and potassium replacement). ?? We will continue to hold??DVT prophylaxis at this time because of the??reported??dark stools and the fact that her hemoglobin dropped a little bit over the last week. ?? She can be discharged home??once PT/OT clear her. Problem List/Past Medical History Ongoing Anxiety Arthritis Bladder dysfunction Bladder spasm Colostomy Forgetful GERD - Gastro-esophageal reflux disease Headache Hyperlipidemia Hypertension TIA - transient ischemic attack Historical No qualifying data Procedure/Surgical History ???Procedure on sigmoid colon (10/18/2022)???Repair of bladder (10/18/2022)???Carpal tunnel release???Hysterectomy Medications Inpatient acetaminophen, 650 mg= 2 tab, Oral, every 4 hr, PRN atorvastatin, 40 mg= 1 tab, Oral, Daily donepezil, 10 mg= 2 tab, Oral, every night at bedtime escitalopram, 10 mg= 1 tab, Oral, Daily ferrous sulfate, 324 mg= 1 tab, Oral, Daily potassium chloride, 40 mEq= 2 tab, Oral, Daily Protonix, 40 mg= 1 tab, Oral, BID psyllium, 3.4 g= 1 EA, Oral, Daily, PRN Zoloft, 100 mg= 2 tab, Oral, Daily Home atorvastatin 40 mg oral tablet, 40 mg= 1 tab, Oral, Daily cetirizine 5 mg oral tablet, 5 mg= 1 tab, Oral, Daily, PRN donepezil 10 mg oral tablet, 10 mg= 1 tab, Oral, every night at bedtime escitalopram 10 mg oral tablet, 10 mg= 1 tab, Oral, Daily ferrous sulfate 325 mg (65 mg elemental iron) oral delayed release tablet, 325 mg= 1 tab, Oral, Daily Lubricant Eye Drops ophthalmic solution pantoprazole 20 mg oral delayed release tablet, 20 mg= 1 tab, Oral, Daily potassium chloride 20 mEq oral tablet, extended release, 20 mEq= 1 tab, Oral psyllium 525 mg oral capsule, 525 mg= 1 cap, Oral, Daily, PRN Tylenol Extra Strength 500 mg oral tablet, 1000 mg= 2 tab, Oral, every 6 hr, PRN Allergies Tylenol with Codeine #3 Social History Alcohol Electronic Cigarette/Vaping Electronic Cigarette Use: Never. Substance Use Tobacco Never tobacco user Tobacco Use:. Immunizations Vaccine Date Status influenza, unspecified formulation 06/02/2023 Recorded Electronically Signed on 08/24/23 09:42 AM Maykel Reaves MD Discharge summary * Maykel Reaves MD: PERFORM Event Display: Discharge Summary Authored Date: [id number] NELIA QURESHI :1945 Age:78 years Sex:Female Visit Date:08/22/2023 Primary Care Physician: Juli Sam Hospital Course Patient is an 78-year-old woman who presented for an elective colostomy reversal.?Her operation went well. ?? In her first 5 postop days she did have a slight drop in hemoglobin and some melanotic stools but this resolved??on its own. ?? She was then transferred to a swing??status bed for??continued PT/OT??and conditioning in order to be discharged home. ?? On postoperative day 8 she was??tolerating a regular diet, her hemoglobin??had been stable,??she was working with PT and OT and cleared to go home with family,??she was having good bowel function??and her abdominal exam was benign and her incisions look perfect.?? She will follow-up in the office for staple removal next week. Physical Exam Vitals & Measurements T:??36.9?C ??(Oral)?? HR:??85??(Peripheral)?? RR:??24?? BP:??126/68?? SpO2:??95%?? HT:??147.3??cm?? HT:??147.3??cm?? WT:??57.9??kg?? WT:??57.9??kg?? BMI:??26.69?? Pain Score:??0?? O2 Therapy:??Room air?? BSA:??1.54?? General: Nontoxic and comfortable and interactive, well-nourished.?? She is in no discomfort or pain. ?? Neuro: Alert and oriented ?? Psych: Cooperative and seemingly appropriate mood and affect, seemingly good insight and understanding into her??condition ?? Chest: Nonlabored breathing, no wheezing or visible shortness of breath ?? Heart: Regular ?? Abdomen: Soft, nondistended and nontender. ??The incision sites look perfect. ??The trey are intact about the colostomy closure??in the midline laparotomy incision.?? Everything looks excellent. Procedure/Surgical History ???Procedure on sigmoid colon (10/18/2022)???Repair of bladder (10/18/2022)???Carpal tunnel release???Hysterectomy Social History Alcohol Electronic Cigarette/Vaping Electronic Cigarette Use: Never. Substance Use Tobacco Never tobacco user Tobacco Use:. Discharge Plan Ordered: Discharge Patient, 08/25/23 10:16:00 EST Patient Discharge Condition Good/stable Discharge Disposition Home with family Patient Instructions Incisions:?? - Some bruising, swelling, pain and soreness is expected. Symptoms that are worsening are not expected and you should call Dr. Bhandari. - Keep incisions clean and dry, but they do??NOT need to be covered. It is okay to shower, but no tub bathing/swimming for one week from surgery date. Pat-dry the incisions when drying.?? - Call ??Thony if you experience worsening pain, swelling, redness, pus, bleeding or fever>101.?? - Go to the Emergency Department for chest pain, shortness of breath, difficulty breathing or changes in mental status.? For next few days: -Call and schedule follow-up appointment to be seen next week. -For shortness of breath, chest pain, altered mental status, high fevers or inability to urinate??please go to the emergency department. ? Diet: - Eat and drink normally, but go slowly with frequency and quantity.? Medications:?? - Resume all of your regular home medications. ? Activity: - Light activity and work without any strenuous activity or heavy lifting until cleared at followup. ? Pain:?? -Tylenol and/or ibuprofen as needed. -Ice and heat, if desired,??are okay as well ? For mild irritation at needle site where your iv was removed: ?? Apply warm, moist pack to area for 20 minutes four times a day for 2-3 days. ?? Call physician if persistent redness, increasing redness or fever and/or drainage at needle siteoccurs. ? If you have any problems, concerns or questions after surgery, do not hesitate to contact your physician's office or the Emergency Room if needed at [phone]. ?? For emergencies, call 911.? Dr. Reaves's office number for scheduling or non-emergent questions/concerns: Call [phone] Medication Reconciliation Unchanged acetaminophen (Tylenol Extra Strength 500 mg oral tablet)2 tab Oral (given by mouth) every 6 hours as needed as needed for pain. ?? atorvastatin (atorvastatin 40 mg oral tablet)1 tab Oral (given by mouth) every day. ?? cetirizine (cetirizine 5 mg oral tablet)1 tab Oral (given by mouth) every day as needed as needed for allergy symptoms. ?? donepezil (donepezil 10 mg oral tablet)1 tab Oral (given by mouth) every night at bedtime. ?? escitalopram (escitalopram 10 mg oral tablet)1 tab Oral (given by mouth) every day. ?? ferrous sulfate (ferrous sulfate 325 mg (65 mg elemental iron) oral delayed release tablet)1 tab Oral (given by mouth) every day. ?? ocular lubricant (Lubricant Eye Drops ophthalmic solution) ?? pantoprazole (pantoprazole 20 mg oral delayed release tablet)1 tab Oral (given by mouth) every day. ?? potassium chloride (potassium chloride 20 mEq oral tablet, extended release)1 tab Oral (given by mouth). take 1 tab three times per week. ?? psyllium (psyllium 525 mg oral capsule)1 Capsules Oral (given by mouth) every day as needed as needed for constipation. ?? Discontinued erythromycin (erythromycin 500 mg oral tablet)2 tab Oral (given by mouth) 3 times a day. Take 2 tabs at 1pm, 2pm and 10pm the night before your surgery. Refills: 0. ?? metroNIDAZOLE (metroNIDAZOLE 500 mg oral tablet)2 tab Oral (given by mouth) 3 times a day. Take 2 tab at 1pm, 2pm and 10pm the day before your surgery. Refills: 0. Electronically Signed on 08/25/23 10:21 AM Maykel Reaves MD Patient Care team information Care Team Personnel Name: Pam Bhandari Position: Ambulatory - Certified Medical Coding Specialist Member Role: Certified Medical Coding Specialist Name: Juli Sam Position: No Access Member Role: Primary Care Physician Address: Address: [address] [place] [id number]
[2023-09-03 14:21] LABS: Anion Gap 11.8 mmol/L (3-11); BUN 13 mg/dL (7-18); CO2 26.2 mmol/L (21.0-32.0); CREATININE 0.7 mg/dL (0.55-1.02); Calcium 8.8 mg/dL (8.5-10.1); Chloride 104 mmol/L (98-107); Estimated GFR 87.37 (mL/min/1.73m2); Glucose 100 mg/dL (74-106); Potassium 3.6 mmol/L (3.5-5.1); Sodium 142 mmol/L (136-145)
== END 2023-09-03 14:05 | disposition home or self-care (01) ==
LOC: LBO 14:04
PROVIDERS: PCP Nurse Practitioner Family; Visit Provider Physician Assistant
DX: E87.6 Hypokalemia (principal)
CPT/HCPCS: 36415; 80048

== ENCOUNTER 2023-09-06 13:50 | Observation (INO) | payer MEDICARE, SELFPAY ==
[2023-09-06] VITALS (73 sets, daily range): BP systolic 99–144; BP diastolic 36–84; PULSE 73–104; RESP 11–24; TEMP 37.6–38.6; O2SAT 94–96
--- NOTE | 2023-09-06 14:04 | ED.GENADUL_ITS ---
HPI General Mode of arrival: EMS . Date/Time Provider Initiated Documentation: 09/06/23 13:52 . Limitations to Documentation: no limitations . Information obtained by: patient . History of Present Illness 78 year old F presents to the emergency department with the chief complaint of general weakness, described as moderate, Patient started experiencing this week(s) (3) and it has been constant. No relieving factors improve symptom(s), No exacerbating factors reported . Patient notes no other symptoms.. Related Data Home Medications Medication Instructions Recorded Confirmed clopidogrel 75 mg tablet (Plavix) 75 mg PO DAILY 11/20/22 09/06/23 ferrous sulfate 325 mg (65 mg 325 mg PO DAILY 11/20/22 09/06/23 iron) tablet atorvastatin 40 mg tablet 40 mg PO DAILY 05/19/23 09/06/23 donepezil 5 mg tablet (Aricept) 5 mg PO BID 05/19/23 09/06/23 escitalopram oxalate 10 mg tablet 10 mg PO DAILY 05/19/23 09/06/23 pantoprazole 40 mg tablet,delayed 20 mg PO DAILY 05/19/23 09/06/23 release psyllium husk 0.52 gram capsule 0.52 g PO DAILY 05/19/23 09/06/23 (Fiber (psyllium husk)) donepezil 10 mg tablet 10 mg PO DAILY 09/06/23 09/06/23 pantoprazole 20 mg tablet,delayed 20 mg PO DAILY PRN 09/06/23 09/06/23 release Allergies Allergy/AdvReac Type Severity Reaction Status Date / Time codeine Allergy Psychosis Unverified 07/14/23 12:09 [From Tylenol-Codeine #3] General Stated Complaint: Nausea/Vomit/Diar VICENTE: 3 Review of Systems All systems reviewed & are unremarkable except as noted in HPI and below Constitutional Constitutional: Denies chills and Denies fever(s) Cardiovascular Cardiovascular: Denies chest pain and Denies dyspnea Respiratory Respiratory: Denies cough and Denies dyspnea Gastrointestinal Gastrointestinal: Denies abdominal pain, Denies nausea and Denies vomiting Musculoskeletal Musculoskeletal: Denies joint swelling Integumentary/Breasts Skin/Breast: Denies rash Exam Const General: no acute distress Orientation: alert HENMT Head: normal to inspection Ears: external ears normal General nose exam: external nose normal Mouth: moist mucous membranes Eyes General: appearance normal, both eyes and all related structures Neck Neck: normal visual inspection Resp Effort & Inspection: normal respiratory effort and able to speak in complete sentences Auscultation: clear to auscultation bilaterally Cardio Jugular venous pressure: no JVD Rate: regular rate Heart Sounds: no murmurs GI Palpation: soft and nontender Skin General skin exam: no rashes or lesions noted Neuro General: patient alert and patient oriented x3 Extrem General: normal to inspection Psych Mental Status: mental status grossly normal Course Vital Signs Vital signs: Vital Signs Pulse 92 H 09/06/23 13:51 Respiratory Rate 12 09/06/23 13:51 Blood Pressure 104/36 L 09/06/23 13:51 Pulse Oximetry 94 09/06/23 13:51 Temperature Source Temporal Artery Scan 09/06/23 13:56 Pulse 92 H 09/06/23 13:56 Respiratory Rate 12 09/06/23 13:56 Respiratory Effort Normal 09/06/23 13:56 Blood Pressure 104/36 L 09/06/23 13:56 Blood Pressure Position Sitting 09/06/23 13:56 Pulse Oximetry 94 09/06/23 13:56 Oxygen Delivery Method Room Air 09/06/23 13:56 Oxygen Flow Rate 0 09/06/23 13:56 Pain Level 0 09/06/23 13:56 Medical Decision Making 78 yo female with hx of gerd, dysphagia, who had an sbo a year ago in [place] and had an ostomy placed and had it reversed a few weeks ago [facility], who comes in with diarrhea since then and the last day has felt generally weak. Denies loc, chest pain, dyspnea, abdominal pain, vomiting, fevers. She is caox4, moving all extremities equally, has a soft nonteder abdomen with healing surgical incisions with no signs of infection. Given her diarrhea and general weakness will check for anemia and electrolyte abnormalities, ua, c diff and fecal bacterial pathogen stool studies and iv fluids and reassess. NO abdominal pain and no tenderness so do not feel imaging indicated at this time pt stable still has no pain or tenderness, labs benign, ua and stool studies pending. Pt was not able to stand without assistance and couldn't ambulate unass isted. Usually ambulates with a cane. Will discuss with hospitalist about obs admission while ua and stool studies pending for pt/ot eval in the morning Differential Diagnosis Differential Diagnosis: c diff, electrolyte abnormality, anemia Lab Data Lab results reviewed: Yes I reviewed the patient's lab results. Quality:SDOH Health Related Social Needs: No Data to Display PFSH All Active Problems (Updated 09/06/23 @ 20:37 by Addi Aldana MD) General weakness (Acute) Diarrhea (Acute) Ambulatory dysfunction (Acute) Dysphasia (Acute) GERD (gastroesophageal reflux disease) (Chronic) Intraoperative bladder injury (Acute) Medical History Arthritis Anxiety Bladder dysfunction Seasonal allergies Mixed incontinence urge and stress Colostomy in place Bowel obstruction TIA (transient ischemic attack) Per son stated this was in 2017 Hyperlipidemia Hypertension Surgical History History of esophagogastroduodenoscopy (~07/2023) H/O: hysterectomy H/O bladder repair surgery H/O colectomy (~10/18/22) Social History Smoking/Tobacco Use Status: Never Smoking risk assessment performed?: Yes Alcohol Intake: former Drug use: Never Substance use type: does not use Housing: house Current gender identity: female Additional Social history: Unable to assess privately Discharge Plan Disposition Patient Disposition: Admit to [facility] Condition: Stable Discharge Details Clinical Impression: Ambulatory dysfunction, Diarrhea, General weakness Primary Care Provider: Juli Sam ED Provider: Addi Aldana Home Meds and New Rx's Prescriptions: No Action clopidogrel [Plavix] 75 mg tablet 75 mg PO DAILY Hold Instructions: Pt Stopped/Never Started ferrous sulfate 325 mg (65 mg iron) tablet 325 mg PO DAILY donepezil [Aricept] 5 mg tablet 5 mg PO BID pantoprazole 40 mg tablet,delayed release (DR/EC) 20 mg PO DAILY Hold Instructions: Pt Stopped/Never Started psyllium husk [Fiber (psyllium husk)] 0.52 gram capsule 0.52 g PO DAILY escitalopram oxalate 10 mg tablet 10 mg PO DAILY atorvastatin 40 mg tablet 40 mg PO DAILY donepezil 10 mg tablet 10 mg PO DAILY pantoprazole 20 mg tablet,delayed release (DR/EC) 20 mg PO DAILY PRN Patient Comments: TAKE ONE TABLET BY MOUTH EVERY MORNING ON EMPTY STOMACH
[2023-09-06] MEDS: Normal Saline 1,000 ML 1000 ML IV ×3 (14:10→19:30)
--- NOTE | 2023-09-06 14:22 | NUR.NOTE ---
[[place]] [facility] [place] [address] [phone] Nursing Note:
[2023-09-06 14:30] LABS: Abs Immature Grans 0.04 10^3/uL (0.0-0.06); Absolute Basophil Count 0.06 10^3/uL (0.0-0.2); Absolute Eosinophil Count 0.09 10^3/uL (0.0-0.7); Absolute Lymphocyte Count 0.53 10^3/uL (1.2-3.4); Absolute Monocyte Count 0.47 10^3/uL (0.1-0.8); Absolute Neutrophil Count 6.48 10^3/uL (1.2-6.7); Basophils % 0.8; Eosinophils % 1.2; HCT 34.5 % (36.0-46.0); HGB 11.4 g/dL (11.2-15.7); Immature Grans % 0.5; Lymphocytes % 6.9; MCH 29.1 pg (27.0-33.0); MCV 88 fL (80-95); MPV 8.8 fL (8.0-11.0); Monocytes % 6.1; Neutrophils % 84.5; Platelet Count 326 10^3/uL (130-400); RBC 3.92 10^6/uL (3.93-5.22); RDW 13.7 % (11.7-14.6); RDW-SD 43.8 fL; WBC 7.67 10^3/uL (4.4-10.8)
[2023-09-06 14:42] LABS: INR 1.2 (0.9-1.1); PTT Activated 27.7 sec (23.6-32.8); Prothrombin Time 11.5 sec (9.1-11.1)
[2023-09-06 14:54] LABS: ALT 16 U/L (14-59); AST 39 U/L (15-37); Albumin 3.2 g/dL (3.4-5.0); Alkaline Phosphatase 88 U/L (46-116); Anion Gap 5.8 mmol/L (3-11); BUN 7 mg/dL (7-18); Bilirubin, Total 0.9 mg/dL (0.2-1.0); CO2 29.2 mmol/L (21.0-32.0); CREATININE 0.6 mg/dL (0.55-1.02); Calcium 8.8 mg/dL (8.5-10.1); Chloride 101 mmol/L (98-107); Estimated GFR 90.68 (mL/min/1.73m2); Glucose 115 mg/dL (74-106); Lipase 32 U/L (16-77); Potassium 5.1 mmol/L (3.5-5.1); Sodium 136 mmol/L (136-145); TSH (W/Ref FT4) 0.44 uIU/mL (0.36-3.74); Total Protein 7.1 g/dL (6.4-8.2)
[2023-09-06 19:56] LABS: Bilirubin Negative (Negative); Blood Trace-lysed (Negative); Clarity Clear (Clear); Glucose Negative (Negative); Ketones Negative (Negative); Leukocyte Esterase Negative (Negative); Nitrite Negative (Negative); Urobilinogen 0.2 mg/dL (Up to 0.2)
--- NOTE | 2023-09-06 19:58 | W.PM.HP.N ---
Date of service: 09/06/23 Time of Service: 19:58 Assessment and Plan Assessment and plan (1) Ambulatory dysfunction: Status: Acute Assessment and plan: Generalized weakness secondary to subacute diarrheal illness. The latter is likely due to ostomy reversal but will r/o infectious etiology. It is noted that she is also taking Psyllium supplements, will hold. 1. Weakness: PT 2. Diarrhea: prn antidiarrheals, check stool C diff and bacterial pathogens 3. Code status: no information on file. Will default to Full Code pending discussion with family. History of Present Illness History of Present Illness Chief Complaint: weakness Narrative: 78 female with h/o dementia, h/o diverting colostomy last year for what I understand was a benign but obstructing lesion; s/p ostomy reversal several weeks. Since about that time she has been having diarrhea and progressive weakness to the point that family brought her in today for evaluation. Work up was generally unrevealing, but patient required one person assist to stand and was very unsteady on her feet. I was asked to evaluate for admission. Patient unable to provide any history, but denies abdominal pain. She also denies diarrhea, though has had two episodes here in ER. Review of Systems Narrative: per HPI PFSH All Active Problems Ambulatory dysfunction (Acute) Dysphasia (Acute) GERD (gastroesophageal reflux disease) (Chronic) Intraoperative bladder injury (Acute) Medical History Arthritis Anxiety Bladder dysfunction Seasonal allergies Mixed incontinence urge and stress Colostomy in place Bowel obstruction TIA (transient ischemic attack) Per son stated this was in 2017 Hyperlipidemia Hypertension Surgical History History of esophagogastroduodenoscopy (~07/2023) H/O: hysterectomy H/O bladder repair surgery H/O colectomy (~10/18/22) Social History Smoking/Tobacco Use Status: Never Smoking risk assessment performed?: Yes Alcohol Intake: former Drug use: Never Substance use type: does not use Housing: house Current gender identity: female Additional Social history: Unable to assess privately Meds Allergies and Home Medications Allergies Allergy/AdvReac Type Severity Reaction Status Date / Time codeine Allergy Psychosis Unverified 07/14/23 12:09 [From Tylenol-Codeine #3] Home Medications Medication Instructions Recorded Confirmed Type clopidogrel 75 mg tablet (Plavix) 75 mg PO DAILY 11/20/22 09/06/23 History ferrous sulfate 325 mg (65 mg 325 mg PO DAILY 11/20/22 09/06/23 History iron) tablet atorvastatin 40 mg tablet 40 mg PO DAILY 05/19/23 09/06/23 History donepezil 5 mg tablet (Aricept) 5 mg PO BID 05/19/23 09/06/23 History escitalopram oxalate 10 mg tablet 10 mg PO DAILY 05/19/23 09/06/23 History pantoprazole 40 mg tablet,delayed 20 mg PO DAILY 05/19/23 09/06/23 History release psyllium husk 0.52 gram capsule 0.52 g PO DAILY 05/19/23 09/06/23 History (Fiber (psyllium husk)) donepezil 10 mg tablet 10 mg PO DAILY 09/06/23 09/06/23 History pantoprazole 20 mg tablet,delayed 20 mg PO DAILY PRN 09/06/23 09/06/23 History release Exam Narrative Exam Narrative: 108/84, 86, 37.6, 14, 94% RA. HEENT atraumatic; neck supple; lungs clear; heart RRR; abdomen well healed ostomy abd mid-line incisions; extremities trace pedal edema; neuro Ox2, knows year and President Results Labs 09/06/23 14:22 09/06/23 14:22 Labs: Laboratory Results - last 24 hr 09/06/23 09/06/23 14:06 14:22 WBC 7.67 RBC 3.92 L Hgb 11.4 Hct 34.5 L MCV 88 MCH 29.1 MCHC 33.0 RDW 13.7 Plt Count 326 MPV 8.8 Immature Gran % 0.5 Neutrophils % 84.5 Lymphocytes % 6.9 Monocytes % 6.1 Eosinophils % 1.2 Basophils % 0.8 Nucleated RBC % 0.0 Absolute Neutrophils 6.48 Absolute Lymphocytes 0.53 L Absolute Monocytes 0.47 Absolute Eosinophils 0.09 Absolute Basophils 0.06 PT 11.5 H INR 1.2 H APTT 27.7 Sodium 136 Potassium 5.1 Chloride 101 Carbon Dioxide 29.2 Anion Gap 5.8 BUN 7 Creatinine 0.6 Est GFR (CKD-EPI 2020) 90.68 Glucose 115 H Calcium 8.8 Magnesium 2.0 Total Bilirubin 0.9 AST 39 H ALT 16 Alkaline Phosphatase 88 Total Protein 7.1 Albumin 3.2 L Lipase 32 TSH 0.44 Patient ABO/Rh Cancelled Antibody Screen Cancelled Last Vital Signs Temp 37.6 C H 09/06/23 19:45 Pulse 86 09/06/23 19:30 Resp 14 09/06/23 19:40 BP 108/84 09/06/23 19:30 Pulse Ox 94 09/06/23 13:56 Time Spent Time spent with Patient: 40-54 minutes Time was spent: preparing to see the patient(eg.review tests), obtaining and/or reviewing separately otained hiistory, ordering medications,tests, procedures, referring, communicating with other health progressive care unit registered nurse and indepentently interpreting results
[2023-09-06 20:01] LABS: Bacteria Negative HPF (Negative); C & S Indicated? No; Casts Negative LPF (Negative); Crystals Negative HPF (Negative); Epithelial Cells Few HPF (Negative); Mucus Negative (Negative); RBC 0-2 HPF (0-2); WBC 0-2 HPF (0-5)
--- NOTE | 2023-09-06 22:14 | TELEP.MEDR_ITS ---
Date of service: 09/06/23 Time of Service: 22:14 Telepharmacy Home Med Rec Allergies Allergies: codeine [From Tylenol-Codeine #3] Allergy (Unverified 07/14/23 12:09) Psychosis Interview Person Interviewed: * Patients son Kaleb Quality Quality of Interview/Accuracy of Medication List: Good Sources Sources used to compile medication list: [employer] Medication List and SureScripts Changes made to Home Medication List: ADDITIONS: * Plavix 75mg po daily (pts son believes she is still taking this at home) DELETIONS: * None CHANGES: * Donepezil 10mg po daily (was 5mg po bid) * Protonix 20mg po daily (was prn) Additional Notes Additional Notes: * Updated medication list with information provided by patients sonKaleb, who helps with medications at home. Recommended Changes Attestation: The home medication list is now updated to the best of my knowledge and is ready to be reconciled by the provider. Please contact the TelePharmacy Medication Reconciliation Pharmacist at for any questions.
--- NOTE | 2023-09-06 22:14 | TELEP.MEDREC ---
Date of service: 09/06/23 Time of Service: 22:14 Telepharmacy Home Med Rec Allergies Allergies: codeine [From Tylenol-Codeine #3] Allergy (Unverified 07/14/23 12:09) Psychosis Interview Person Interviewed: Patients rodriguez Manuel Quality Quality of Interview/Accuracy of Medication List: Good Sources Sources used to compile medication list: [employer] Medication List and SureScripts Changes made to Home Medication List: ADDITIONS: Plavix 75mg po daily (pts son believes she is still taking this at home) DELETIONS: None CHANGES: Donepezil 10mg po daily (was 5mg po bid) Protonix 20mg po daily (was prn) Additional Notes Additional Notes: Updated medication list with information provided by patients sonKaleb, who helps with medications at home. Recommended Changes Attestation: The home medication list is now updated to the best of my knowledge and is ready to be reconciled by the provider. Please contact the TelePharmacy Medication Reconciliation Pharmacist at for any questions.
[2023-09-06] MEDS: Acetaminophen 325 MG TAB 650 MG PO (23:56)
[2023-09-07] MEDS: Normal Saline Flush 10 ML SYR IVP ×4 (00:55→22:18)
[2023-09-07 03:46] VITALS: TEMP 36.9
[2023-09-07 07:36] LABS: Abs Immature Grans 0.03 10^3/uL (0.0-0.06); Absolute Basophil Count 0.04 10^3/uL (0.0-0.2); Absolute Eosinophil Count 0.08 10^3/uL (0.0-0.7); Absolute Lymphocyte Count 0.72 10^3/uL (1.2-3.4); Absolute Monocyte Count 0.43 10^3/uL (0.1-0.8); Absolute Neutrophil Count 4.27 10^3/uL (1.2-6.7); Basophils % 0.7; Eosinophils % 1.4; HGB 10.1 g/dL (11.2-15.7); Immature Grans % 0.5; Lymphocytes % 12.9; MCH 29.5 pg (27.0-33.0); MCHC 33.7 % (32.0-36.0); MCV 88 fL (80-95); MPV 8.6 fL (8.0-11.0); Monocytes % 7.7; Neutrophils % 76.8; Platelet Count 247 10^3/uL (130-400); RBC 3.42 10^6/uL (3.93-5.22); RDW 13.6 % (11.7-14.6); RDW-SD 43.9 fL; WBC 5.57 10^3/uL (4.4-10.8)
[2023-09-07 07:46] LABS: Anion Gap 8.2 mmol/L (3-11); BUN 4 mg/dL (7-18); CO2 25.8 mmol/L (21.0-32.0); CREATININE 0.5 mg/dL (0.55-1.02); Calcium 8.1 mg/dL (8.5-10.1); Chloride 105 mmol/L (98-107); Estimated GFR 94.76 (mL/min/1.73m2); Glucose 94 mg/dL (74-106); Magnesium 1.9 mg/dL (1.8-2.4); Potassium 3.2 mmol/L (3.5-5.1); Sodium 139 mmol/L (136-145)
--- NOTE | 2023-09-07 08:15 | INITIAL_ITS ---
Date of service: 09/07/23 Time of Service: 08:15 Care Management Initial Assmt Initial Assessment REASON FOR HOSPITALIZATION:: diarrhea PREVIOUS FUNCTIONAL STATUS/SOCIAL/FAMILY SUPPORTS:: Lily lives in an apartment in [facility]. Her brother is staying with her until the end if the month when her son Kaleb will return. Aracely stated that Kaleb lives with her but goes to work during the day sometimes. Kaleb is Aracely's only child and she has one grandchild. 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 She stated it was a physically demanding job. Aracely relocated from [place] last December after she had abdominal surgery to be closer to her son. She is independent at baseline and uses a walker and a cane as needed for ambulatory support. CURRENT FUNCTIONAL STATUS:: Aracely was sitting up in bed when CM met with her. She was very pleasant in manner and engaged easily in conversation. Aracely spoke about moving to [place]. She stated she was ! living in [place] and went to [place] with her core sticker. She stated that she didn't intend to stay so long. When asked how long she was there, she stated over 20 years! Aracely informed Cm that she is very independent and will likely not need any services at home. She agreed to revisit the issue closer to discharge, however. ADVANCE DIRECTIVES:: none on file Has patient been provided with info about the portal/API?: Yes Did the patient sign up for the portal?: No CODE STATUS:: Full Code INSURANCE COVERAGE / FINANCIAL ISSUES:: [employer] Medicare Replacement PRIMARY CARE PHYSICIAN:: Juli Sam POTENTIAL DISCHARGE NEEDS:: follow up with PCP and plan of care PATIENT/FAMILY EDUCATION NEEDS:: review of discharge instructions, activity, limitations, follow up plan, discuss Ask Me Three TRANSPORTATION:: via private vehicle with family PLAN:: Anticipate Lily will return home, possibly with new home health services, when medically cleared by provider. She will follow up with her community providers and plan of care and transport with family. CM will follow and continue to assess for discharge needs. PFSH All Active Problems (Updated 09/07/23 @ 19:06 by Laurie Marin MD) Discharge planning issues (Acute) DVT prophylaxis (Acute) Hypokalemia (Acute) COVID-19 (Acute) General weakness (Acute) Diarrhea (Acute) Ambulatory dysfunction (Acute) Dysphasia (Acute) GERD (gastroesophageal reflux disease) (Chronic) Intraoperative bladder injury (Acute) Medical History Arthritis Anxiety Bladder dysfunction Seasonal allergies Mixed incontinence urge and stress Colostomy in place Bowel obstruction TIA (transient ischemic attack) Per son stated this was in 2017 Hyperlipidemia Hypertension Surgical History History of esophagogastroduodenoscopy (~07/2023) H/O: hysterectomy H/O bladder repair surgery H/O colectomy (~10/18/22) Social History Smoking/Tobacco Use Status: Never Smoking risk assessment performed?: Yes Alcohol Intake: former Drug use: Never Substance use type: does not use Housing: house Current gender identity: female Additional Social history: Unable to assess privately SDOH(Care Management) Screening Will the Patient Participate in the Screening?: Declined to provide
[2023-09-07] MEDS: Escitalopram 10 MG TAB PO (08:23)
[2023-09-07] MEDS: Potassium Chloride 20 MEQ TABCR 40 MEQ PO (08:24)
[2023-09-07] MEDS: Donepezil 5 MG TAB 10 MG PO (08:24)
[2023-09-07] MEDS: Atorvastatin 40 MG TAB PO (08:24)
[2023-09-07] MEDS: POTASSIUM CHLORIDE 20 MEQ/100 ML BAG 40 MEQ IVPB ×2 (08:26→11:27)
[2023-09-07] MEDS: Ferrous Sulfate 325 MG TAB PO (08:48)
[2023-09-07 08:52] VITALS: BP 129/72; PULSE 97; RESP 18; TEMP 37.8; O2SAT 94
--- NOTE | 2023-09-07 10:58 | PT.INIE ---
PT Notes Visit Reasons: Weakness,Diarrhea Physical Therapy Inpatient Initial Evaluation Date: 09/07/2023 Referring Doctor: Morales Christopher MD PT Orders: PT CONSULT: Limited ability Precautions: Fall. On enteric contact precautions. Activity as tolerated. Patient Profile/Admitting Diagnosis: Lily is an 78-year-old female admitted to [facility] on 09/06/2023 due to generalized weakness and for management of ambulatory dysfunction related to chronic diarrhea. PMHX: All Active Problems Ambulatory dysfunction (Acute) Dysphasia (Acute) GERD (gastroesophageal reflux disease) (Chronic) Intraoperative bladder injury (Acute) Medical History Arthritis Anxiety Bladder dysfunction Seasonal allergies Mixed incontinence urge and stress Colostomy in place Bowel obstruction TIA (transient ischemic attack) Per son stated this was in 2017Hyperlipidemia Hypertension Surgical History History of esophagogastroduodenoscopy (~07/2023) H/O: hysterectomy H/O bladder repair surgery H/O colectomy (~10/18/22) Social History/Home Situation: Patient lives in an apartment building with 5 steps to enter with rails on both sides. Modified independent with use of single-point cane. Gets Meals on Wheels. Equipment Owned/DME: [facility] Subjective: Feels much better. Hoping to go home soon. Denies headache, chest pain, and lightheadedness throughout session. Objective: General Observation: Resting in bed. IV through right UE. Mental Status: Alert and oriented as to person, place, time, and purpose. Able to pay attention, focus, and respond appropriately. Pain: Denied Vital Signs: BP 143/76 mmHg, RI 110 bpm, SaO2 96% on room air ROM: Right Upper Extremity: Shoulder Flexion WFL. Shoulder abduction WFL. Elbow flexion WFL. Wrist flexion WFL. Functional opening and closing of hand WFL. Left Upper Extremity: Shoulder Flexion WFL. Shoulder abduction WFL. Elbow flexion WFL. Wrist flexion WFL. Functional opening and closing of hand WFL. Right Lower Extremity: Hip flexion WFL. Hip abduction WFL. Knee flexion WFL. Ankle dorsiflexion WFL. Ankle plantarflexion WFL. Left Lower Extremity: Hip flexion WFL. Hip abduction WFL. Knee flexion WFL. Ankle dorsiflexion WFL. Ankle plantarflexion WFL. Strength: Right Upper Extremity: Shoulder flexors 4/5. Shoulder abductors 4/5. Elbow flexors 5/5. Elbow extensors 5/5. Executive Administrative Assistant strong. Left Upper Extremity: Shoulder flexors 4/5. Shoulder abductors 4/5. Elbow flexors 5/5. Elbow extensors 5/5. Executive Administrative Assistant strong. Right Lower Extremity: Hip flexors 4/5. Hip abductors 4/5. Knee flexors 5/5. Knee extensors 5/5. Ankle dorsiflexors 4/5. Ankle plantarflexors 5/5. Left Lower Extremity: Hip flexors 4/5. Hip abductors 4/5. Knee flexors 5/5. Knee extensors 5/5. Ankle dorsiflexors 4/5. Ankle plantarflexors 5/5. Bed Mobility/Transfers: Minimal cueing provided for use of B hands as needed for support, movement sequence, AD management, and posture to reduce fall risk and minimize pain report Rolling supervision Supine to sit standby assist Sit to stand contact-guard assist Stand to sit contact-guard assist Bed to reclining chair contact-guard assist Gait: Tolerated level surface ambulation using FWW for about 40 feet using FWW with contact guard assist with minimal cueing provided for movement sequence, AD management, and posture to reduce fall risk and minimize pain report. Balance: Static Sitting: Normal Dynamic Sitting: Normal Static Standing: Fair Dynamic Standing: Fair Special Tests: Mobility Limitations Standardized Measure [facility] AM-PAC 6 clicks Basic Mobility Inpatient Short Form: Raw Score: 20 CMS Score: 36% deficit Informed Consent/Education: Patient was instructed in purpose of PT consult and plan of care. Agreeable to proceed with established PT POC to achieve personal goals. THERA EX: Seated marches x 10 LAQs x 10 AKTC x 10 Assessment: Had patient use the front-wheeld walker for this session as she has been weak and has had diarrhea chronincally. Will look into upgrading patient to using SPC as appropriate. Nurse Pop provided assistance with clean up as patient had a bowel movement before she was asked to stand up. Patient presents with clinical signs and symptoms consistent with current/admitting diagnoses that have resulted to mobility limitations, gait instability, generalized weakness, and overall ADL decline as demonstrated by the following impairment level findings: 1. Decreased strength to B shoudler and hip major muscle groups 2. Impaired sitting/standing balance 3. Impaired activity tolerance Impairments are contributing to the following functional limitations: 1. Decline in bed mobility skills 2. Decline in transfer skills 3. Difficulty with ambulation without assistive device and physical assistance 4. Increased completion time for mobility ADL performance 5. Increased risk for falls 6. Difficulty with managing steps alone safely [place] [address] moderate complexity based on the following: History: 78-year-old female with past medical history as indicated above Examination: Demonstrable impairment in strength, balance, and mobility level with underlying impairments and functional limitations as exhibited above as well as deficit score of 36% utilizing the [facility] Mobility Inpatient Short Form Presentation: Evolving Decision Makin moderate complexity Goals: Goals X1 week 1. Supine-Sit independent 2. Sit-Supine independent 3. Sit-Stand independent 4. Stand-Sit independent with SPC 5. Bed-Chair independent with SPC 6. Chair-Bed independent with SPC 7. Independent gait on level surface with use of FWW for at least 300 feet without report of pain nor dyspnea 8. Independent stair negotiation while holding onto B rails for at least 5 steps without report of pain nor dyspnea 9. Independent with home exercise program 10. Good static and dynamic standing balance/tolerance Plan of Care/Treatment Plan: 1-2x/day, 7 days/week x 1 week. Plan of care has been reviewed with the MARKET GARDEN WORKER providing the service under Physical Therapy direction. Initiate Physical Therapy intervention for pain management as needed, strengthening, bed mobility, transfers, gait, stairs, balance training, and use of assistive device. DISCHARGE RECOMMENDATIONS: [] Home with no services [] [X] Home with services. Patient will benefit from home health PT services in order to progress mobility level using least restrictive assistive ambulatory device, assess home safety, identify additional equipment needs, and establish a functional maintenance program that will increase ability of patient to remain at home. [] Home with outpatient PT [] [] SNF for continued rehabilitation [] [] Custodial Care [] [] SNF versus LTC based on ability to participate and progress [] TREATMENT CODE/TIME: 57400 x 20 minutes for 1 unit, 28745 x 15 minutes for 1 unit (10:20-10:55 AM) Thank you for the opportunity to participate in the care of this patient. Jade Duran PT, DPT, CLT [facility] [place], [place]
[2023-09-07] MEDS: Loperamide 2 MG CAP PO (11:27)
[2023-09-07 11:45] LABS: C Diff PCR Negative (Negative)
[2023-09-07 12:02] LABS: Lab Add On Test DONE
[2023-09-07 12:51] LABS: Procalcitonin < 0.1 ng/mL
[2023-09-07 14:32] LABS: Influenza A PCR Negative (Negative); Influenza B PCR Negative (Negative); RSV PCR Negative (Negative)
[2023-09-07 14:33] LABS: Source Nasopharynx
[2023-09-07 14:34] LABS: COVID-19 PCR Positive (Negative)
--- NOTE | 2023-09-07 14:43 | PT.INTREAT ---
PT Notes Visit Reasons: Weakness,Diarrhea Physical Therapy Inpatient Treatment Note Date: 09/07/2023 Referring Doctor: Morales Christopher MD PT Orders: PT CONSULT: Limited ability Precautions: Fall. On droplet and airborne precautions for COVID-19. Activity as tolerated. Subjective: Sad when she learned that she is COVID positive. Hoping that somebody from home could bring her cellphone. Nurse Donn called her son and said that brother will bring her phone in. Objective: General Observation: Resting in bed. IV through right UE. Mental Status: Alert and oriented as to person, place, time, and purpose. Able to pay attention, focus, and respond appropriately. Pain: Denied Vital Signs: Closley monitored by nursing staff Bed Mobility/Transfers: Minimal cueing provided for use of B hands as needed for support, movement sequence, AD management, and posture to reduce fall risk and minimize pain report Rolling supervision Supine to sit standby assist Sit to stand contact-guard assist Stand to sit contact-guard assist Bed to reclining chair contact-guard assist Gait: Tolerated level surface ambulation using FWW for about 100 feet using FWW with contact guard assist with minimal cueing provided for movement sequence, AD management, and posture to reduce fall risk and minimize pain report. Balance: Static Sitting: Normal Dynamic Sitting: Normal Static Standing: Fair Dynamic Standing: Fair THERA EX: Chest expansion exercises alongside B shoulder flexion/ext x 5 Alternate [id number] x 10 Chest expansion exercises alongside B shoulder hor abd and add x 5 Bent knee slide outs in supine x 10 Chest expansion exercises alongside B UE d2 flexion/ext x 5 Hip add squeeze using rolled pillow x 10 ASSESSMENT: Patient tested positive for COVID-19 and is now on droplet and airborne precautions. Moved to room 215 with PT. Tolerated walking from 208 to 215 with PT with mask on and wheelchair follow. Minimally short of breath but no complaints. Had patient use the front-wheeld walker for this session as she has been weak and has had diarrhea chronincally. Will look into upgrading patient to using SPC as appropriate. Nurse Pop provided assistance with clean up as patient had a bowel movement before she was asked to stand up. Plan of Care/Treatment Plan: 1-2x/day, 7 days/week x 1 week. Plan of care has been reviewed with the EVENT SECURITY OFFICER providing the service under Physical Therapy direction. Initiate Physical Therapy intervention for pain management as needed, strengthening, bed mobility, transfers, gait, stairs, balance training, and use of assistive device. DISCHARGE RECOMMENDATIONS: [] Home with no services [] [X] Home with services. Patient will benefit from home health PT services in order to progress mobility level using least restrictive assistive ambulatory device, assess home safety, identify additional equipment needs, and establish a functional maintenance program that will increase ability of patient to remain at home. [] Home with outpatient PT [] [] SNF for continued rehabilitation [] [] Bilingual Customer Service Specialist Care [] [] SNF versus LTC based on ability to participate and progress [] TREATMENT CODE/TIME: 48652 x 15 minutes for 1 unit, 99462 x 16 minutes for 1 unit (14:43-05:15 PM)
[2023-09-07 15:19] VITALS: BP 130/76; PULSE 92; RESP 18; TEMP 38.2; O2SAT 94
[2023-09-07 15:21] VITALS: TEMP 38.2
[2023-09-07] MEDS: Acetaminophen 325 MG TAB 650 MG PO (15:21)
--- NOTE | 2023-09-07 19:00 | DI.RAD_ITS ---
Exam(s) XR PORTABLE CHEST AP EXAM: XR PORTABLE CHEST AP CLINICAL HISTORY: COVID-19 TECHNIQUE: 2D digital imaging was performed. COMPARISON: No exams were available for comparison FINDINGS: A hiatal hernia is noted. LUNGS: Clear. No pleural abnormality seen. HEART: Normal size. AORTA: Normal diameter. BONES: Unremarkable for age. Soft tissues: Unremarkable. IMPRESSION: No acute findings. DATA REPOSITORY: RADIATION DOSE DELIVERED:
--- NOTE | 2023-09-07 19:04 | PGE_ITS ---
Date of Service Date of service: 09/07/23 Time of Service: 18:30 Assessment and Plan Assessment and plan (1) COVID-19: Status: Acute Assessment and plan: Start remdesivir. Encourage pulmonary toilet. NO respiratory symptoms; obtain CXR for baseline. (2) Diarrhea: Status: Acute Assessment and plan: Due to COVID-19. COntinue prn imodium. Treat COVID-19 (3) Hypokalemia: Status: Acute Assessment and plan: Replete, recheck in am (4) General weakness: Status: Acute Assessment and plan: IN setting of COVID-19. Treat COVID-19 PT consulted. (5) Ambulatory dysfunction: Status: Acute Assessment and plan: PT consulted (6) DVT prophylaxis: Status: Acute Assessment and plan: SC enoxaparin (7) Discharge planning issues: Status: Acute Assessment and plan: Full code Physical therapy consulted. Subjective Subjective Interval history since last seen: Continues to have diarrhea. Imodium is helping. Covid positive. Denies dizziness, CP, SOB, n/v. Exam Narrative Exam Narrative: General: a pleasant elderly female who is A&Ox2, NAD, laying comfortably in bed, feels warm to touch HEENT: EOMI, MMM Heart: RRR, mildly tachycardic Lungs: CTAB Abdomen: soft, nontender, nondistended Extremities: trace edema BLEs Objective Last Vital Signs Temp 38.2 C H 09/07/23 15:21 Pulse 92 H 09/07/23 15:19 Resp 18 09/07/23 15:19 BP 130/76 09/07/23 15:19 Pulse Ox 94 09/07/23 15:19 Laboratory Results - last 24 hr 09/06/23 09/07/23 09/07/23 19:50 07:30 10:45 WBC 5.57 RBC 3.42 L Hgb 10.1 L Hct 30.0 L MCV 88 MCH 29.5 MCHC 33.7 RDW 13.6 Plt Count 247 MPV 8.6 Immature Gran % 0.5 Neutrophils % 76.8 Lymphocytes % 12.9 Monocytes % 7.7 Eosinophils % 1.4 Basophils % 0.7 Nucleated RBC % 0.0 Absolute Neutrophils 4.27 Absolute Lymphocytes 0.72 L Absolute Monocytes 0.43 Absolute Eosinophils 0.08 Absolute Basophils 0.04 Sodium 139 Potassium 3.2 L D Chloride 105 Carbon Dioxide 25.8 Anion Gap 8.2 BUN 4 L Creatinine 0.5 L Est GFR (CKD-EPI 2020) 94.76 Glucose 94 Calcium 8.1 L Magnesium 1.9 Procalcitonin < 0.1 Urine Color Yellow Urine Clarity Clear Urine pH 7.0 Ur Specific [place] 1.020 Urine Protein Negative Urine Ketones Negative Urine Blood Trace-lysed H Urine Nitrite Negative Urine Bilirubin Negative Urine Urobilinogen 0.2 Ur Leukocyte Esterase Negative Urine RBC 0-2 Urine WBC 0-2 Ur Epithelial Cells Few Urine Crystals Negative Urine Bacteria Negative Urine Casts Negative Urine Mucus Negative Ur Culture Indicated? No Urine Glucose Negative Stl C.difficile Tox PCR Negative COVID-19 Source SARS-CoV-2 (PCR) Influenza Type A (PCR) Influenza Type B (PCR) RSV (PCR) Add-On Test Request DONE 09/07/23 12:30 WBC RBC Hgb Hct MCV MCH MCHC RDW Plt Count MPV Immature Gran % Neutrophils % Lymphocytes % Monocytes % Eosinophils % Basophils % Nucleated RBC % Absolute Neutrophils Absolute Lymphocytes Absolute Monocytes Absolute Eosinophils Absolute Basophils Sodium Potassium Chloride Carbon Dioxide Anion Gap BUN Creatinine Est GFR (CKD-EPI 2020) Glucose Calcium Magnesium Procalcitonin Urine Color Urine Clarity Urine pH Ur Specific [place] Urine Protein Urine Ketones Urine Blood Urine Nitrite Urine Bilirubin Urine Urobilinogen Ur Leukocyte Esterase Urine RBC Urine WBC Ur Epithelial Cells Urine Crystals Urine Bacteria Urine Casts Urine Mucus Ur Culture Indicated? Urine Glucose Stl C.difficile Tox PCR COVID-19 Source Nasopharynx SARS-CoV-2 (PCR) Positive A Influenza Type A (PCR) Negative Influenza Type B (PCR) Negative RSV (PCR) Negative Add-On Test Request Time Spent with Patient Time Spent with Patient: 35-49 minutes Time was spent: preparing to see the patient(eg.review tests), obtaining and/or reviewing separately otained hiistory, ordering medications,tests, procedures, referring, communicating with other health occasional caregiver, indepentently interpreting results, counseling the patient and care coordination
[2023-09-07] MEDS: REMDESIVIR 200 MG in Normal Saline 250 ML 250 MG IVPB (19:44)
[2023-09-07 20:58] VITALS: BP 127/56; PULSE 84; RESP 16; TEMP 37.2; O2SAT 96
[2023-09-07 23:06] LABS: Campylobacter PCR Negative (Negative); Salmonella PCR Negative (Negative); Shiga Toxin PCR Negative (Negative); Shigella/Enteroinvasive Ecoli Negative (Negative)
[2023-09-08] VITALS (9 sets, daily range): BP systolic 115–143; BP diastolic 69–76; PULSE 79–94; RESP 14–18; TEMP 36.4–38.1; O2SAT 96–99
[2023-09-08] MEDS: Acetaminophen 325 MG TAB 650 MG PO ×2 (00:43→08:33)
[2023-09-08 06:56] LABS: Abs Immature Grans 0.02 10^3/uL (0.0-0.06); Absolute Basophil Count 0.04 10^3/uL (0.0-0.2); Absolute Eosinophil Count 0.37 10^3/uL (0.0-0.7); Absolute Lymphocyte Count 0.93 10^3/uL (1.2-3.4); Absolute Monocyte Count 0.39 10^3/uL (0.1-0.8); Basophils % 0.9; Eosinophils % 8.7; HCT 29.4 % (36.0-46.0); HGB 9.7 g/dL (11.2-15.7); Immature Grans % 0.5; Lymphocytes % 21.9; MCH 29.2 pg (27.0-33.0); MCV 89 fL (80-95); Monocytes % 9.2; Neutrophils % 58.8; Platelet Count 239 10^3/uL (130-400); RBC 3.32 10^6/uL (3.93-5.22); RDW 13.9 % (11.7-14.6); RDW-SD 44.9 fL; WBC 4.25 10^3/uL (4.4-10.8)
[2023-09-08 07:05] LABS: INR 1.1 (0.9-1.1)
[2023-09-08 07:36] LABS: Vitamin D 25 Total 8.6 ng/mL (30-100)
[2023-09-08 07:37] LABS: Anion Gap 10.2 mmol/L (3-11); BUN 6 mg/dL (7-18); C-Reactive Protein 3.52 mg/dL (<or=0.5); CO2 24.8 mmol/L (21.0-32.0); CREATININE 0.6 mg/dL (0.55-1.02); Calcium 8.5 mg/dL (8.5-10.1); Chloride 107 mmol/L (98-107); Estimated GFR 90.68 (mL/min/1.73m2); Glucose 94 mg/dL (74-106); Magnesium 1.9 mg/dL (1.8-2.4); Potassium 3.8 mmol/L (3.5-5.1); Sodium 142 mmol/L (136-145)
[2023-09-08 07:38] LABS: ALT 13 U/L (14-59); AST 8 U/L (15-37); Albumin 2.5 g/dL (3.4-5.0); Alkaline Phosphatase 63 U/L (46-116); Bilirubin, Direct 0.1 mg/dL (0.0-0.2); Bilirubin, Total 0.3 mg/dL (0.2-1.0); Total Protein 5.6 g/dL (6.4-8.2)
[2023-09-08 07:47] LABS: D-Dimer 581 ng/mlFEU (<500)
[2023-09-08 08:08] LABS: Ferritin 136 ng/mL (8-252)
[2023-09-08] MEDS: Cholecalciferol (Vitamin D3) 1,000 UNIT TAB 2000 UNITS PO (08:33)
[2023-09-08] MEDS: Clopidogrel 75 MG TAB PO (08:33)
[2023-09-08] MEDS: Zinc Sulfate 220 MG TAB PO (08:33)
[2023-09-08] MEDS: Escitalopram 10 MG TAB PO (08:33)
[2023-09-08] MEDS: Donepezil 5 MG TAB 10 MG PO (08:34)
[2023-09-08] MEDS: Atorvastatin 40 MG TAB PO (08:34)
[2023-09-08] MEDS: Pantoprazole 40 MG TABCR PO (08:34)
[2023-09-08] MEDS: Ascorbic Acid 500 MG TAB PO ×2 (08:34→21:08)
[2023-09-08] MEDS: Loperamide 2 MG CAP PO (08:34)
[2023-09-08] MEDS: Ferrous Sulfate 325 MG TAB PO (08:34)
[2023-09-08] MEDS: Normal Saline Flush 10 ML SYR IVP ×2 (08:35→21:08)
--- NOTE | 2023-09-08 10:05 | PDOC.CMPRO ---
Date of service: 09/08/23 Time of Service: 10:05 Care Management Progress Note Progress Note Text Progress Note Text: S/O:Aracely remains on Covid isolation so CM unable to meet with her. She is receiving Remdesevir for her Covid infection, believed to be the cause of her diarrhea. Aracely has afebrile all day today but did have a fever of 38+ last evening. She is saturating well on room air and has no respiratory symptoms at this time. A: Aracely is an 78 year old female admitted on 09/06/23 with weakness found to have Covid P:Anticipate Lily will return home, possibly with new home health services, when medically cleared by provider. She will follow up with her community providers and plan of care and transport with family. CM will follow and continue to assess for discharge needs. SDOH(Care Management) Screening Will the Patient Participate in the Screening?: Declined to provide
[2023-09-08] MEDS: Enoxaparin 40 MG/0.4 ML SYR SC (11:01)
--- NOTE | 2023-09-08 14:01 | PT.INTREAT ---
PT Notes Visit Reasons: Weakness,Diarrhea Date: 09/08/2023 PRECAUTIONS: Fall. On droplet and airborne precautions for COVID-19. Activity as tolerated. SUBJECTIVE: Pt in high spirits, agreed to participating with therapy. OBJECTIVE: ? PAIN: none reported VITALS: monitored by nursing ? Therapeutic Activities 70098 15mins: Direct one-on-one instruction in dynamic activities to improve functional performance. ?? BED MOBILITY/TRANSFERS? Rolling L/R: supervision Supine-sit: ? supervision? Sit-supine: ? ?supervision ? Sit-stand: ? ?supervision? Stand-sit: ?? supervision? Bed-Chair:? ?supervision? Chair-bed: supervision gait training inside room: FWW 50' low step height short, step width. Provided skilled cues and instruction on performance and technique throughout. ? Therapeutic Exercises 18700 15mins: Direct one-on-one instruction in therapeutic exercises to develop strength, endurance, range of motion and flexibility. Exercises Chest expansion exercises with DBE x 5 Seated marches x 10 Chest expansion exercises with DBE x 5 Armrest tricpes push ups 10x LAQ x 10 Seated marching 10x L/R Hip adductor squeeze 10x Ankle pumps 10x Provided skilled instruction in proper exercise performance Provided skilled manual cues to facilitate proper muscle recruitment and/or form: ASSESSMENT:?Pt required verbal and tactile cue for body positioning and timing during sit to stands and gait training, slight SOB alleviated with taking DBE during seated rest breaks. PLAN: Continue with global strengthening and general conditioning for improved mobility and activity tolerance until pt is ready for DC. Treatment code/time: 47873m7, 21061q0 25mins (1:40-2:05pm)
--- NOTE | 2023-09-08 14:21 | PHA.REVIEW2 ---
Pharmacy Admission Review Admission Clinical Review Admission Pharmacy Review: (Updated 09/07/23 @ 19:06 by Laurie Marin MD) Discharge planning issues (Acute) DVT prophylaxis (Acute) Hypokalemia (Acute) COVID-19 (Acute) General weakness (Acute) Diarrhea (Acute) Ambulatory dysfunction (Acute) codeine [From Tylenol-Codeine #3] Allergy (Unverified 07/14/23 12:09) Psychosis Resuscitation Status Full Code Height 4 ft 11 in Weight 55.3 kg Pharmacy Admission Review Renal Dosing Renal Dosing: BUN 6 mg/dL (7-18) L 09/08/23 06:30 Creatinine 0.6 mg/dL (0.55-1.02) 09/08/23 06:30 Medications needing adjustments: Reviewed (CrCl 39.1 mL/min) Anticoagulation Anticoagulation: Hgb 9.7 g/dL (11.2-15.7) L 09/08/23 06:30 Hct 29.4 % (36.0-46.0) L 09/08/23 06:30 Plt Count 239 10^3/uL (130-400) 09/08/23 06:30 INR 1.1 (0.9-1.1) 09/08/23 06:30 Creatinine 0.6 mg/dL (0.55-1.02) 09/08/23 06:30 DVT Prophylaxis: Intervened (Progress note yesterday stated Lovenox 40mg but there was no order, reached out to provider who put order in) Medications: Enoxaparin (40mg q24h) Relevant Labs Relevant Labs: Sodium 142 mmol/L (136-145) 09/08/23 06:30 Potassium 3.8 mmol/L (3.5-5.1) 09/08/23 06:30 Chloride 107 mmol/L (98-107) 09/08/23 06:30 Magnesium 1.9 mg/dL (1.8-2.4) 09/08/23 06:30 C-Reactive Protein 3.52 mg/dL (<or=0.5) 09/08/23 06:30 Electrolytes, C-Reactive P, ESR: Reviewed (AST decreased from 39 to 8, ALT 13. Hgb decreased to 9.7) Cardiac Review BP, HR, EF%: Reviewed (HR/BP WNL) QTc Review QTc: N/A (No EKG in patients file) IV to PO Switch IV Medications: Reviewed Home Meds Home Med List reviewed: Reviewed Relevent Home Meds Not ordered & why?: On home med list but not ordered: psyllium (PRN) Current Meds Current Medication Order Review: Reviewed Pharmacy Antibiotic Review Relevant Labs: Relevant Labs 09/08/23 06:30 C-Reactive Protein 3.52 Pharmacy Antibiotic Activity: C/S review Comments: On Remdesivir day 2, COVID positive, blood cultures pending
--- NOTE | 2023-09-08 19:43 | W.PM.PROGNOT ---
Date of Service Date of service: 09/08/23 Time of Service: 19:44 Assessment and Plan Assessment and plan (1) COVID-19: Status: Acute Assessment and plan: Continue remdesivir (day 2/3). Encourage pulmonary toilet. CXR negative. No pulmonary symptoms. (2) Diarrhea: Status: Acute Assessment and plan: Due to COVID-19. COntinue prn imodium. Treat COVID-19 Improved. (3) Hypokalemia: Status: Resolved Assessment and plan: Recheck in am (4) General weakness: Status: Acute Assessment and plan: In setting of COVID-19. Treat COVID-19 Will benefit from home health services on d/c. (5) Ambulatory dysfunction: Status: Acute Assessment and plan: PT consulted (6) DVT prophylaxis: Status: Acute Assessment and plan: SC enoxaparin (7) Discharge planning issues: Status: Acute Assessment and plan: Full code Physical therapy consulted. Anticipate discharge home in the next 24 hours with home health services (PT). Subjective Subjective Interval history since last seen: Ms Becerra feels great. Diarrhea has slowed down. No dizziness, CP, SOB, n/v. Has been working with IS and acapella. Feels stronger. Excited about the possibility of going home tomorrow. Told me about her [place] puppy Max who was shot and how she wants to get a female Israeli puppy and name her Rachelle Moses. Exam Narrative Exam Narrative: General: a pleasant elderly female who is A&Ox2, NAD, laying comfortably in bed, feels warm to touch, looks better than yesterday HEENT: EOMI, MMM Heart: RRR, mildly tachycardic Lungs: CTAB Abdomen: soft, nontender, nondistended Extremities: trace edema BLEs Objective Last Vital Signs Temp 38 C H 09/08/23 19:05 Pulse 94 H 09/08/23 19:05 Resp 18 09/08/23 19:05 BP 119/72 09/08/23 19:05 Pulse Ox 96 09/08/23 19:05 Laboratory Results - last 24 hr 09/07/23 09/08/23 10:45 06:30 WBC 4.25 L RBC 3.32 L Hgb 9.7 L Hct 29.4 L MCV 89 MCH 29.2 MCHC 33.0 RDW 13.9 Plt Count 239 MPV 9.0 Immature Gran % 0.5 Neutrophils % 58.8 Lymphocytes % 21.9 Monocytes % 9.2 Eosinophils % 8.7 Basophils % 0.9 Nucleated RBC % 0.0 Absolute Neutrophils 2.50 Absolute Lymphocytes 0.93 L Absolute Monocytes 0.39 Absolute Eosinophils 0.37 Absolute Basophils 0.04 PT 11.0 INR 1.1 D-Dimer 581 H Sodium 142 Potassium 3.8 Chloride 107 Carbon Dioxide 24.8 Anion Gap 10.2 BUN 6 L Creatinine 0.6 Est GFR (CKD-EPI 2020) 90.68 Glucose 94 Calcium 8.5 Magnesium 1.9 Ferritin 136 Total Bilirubin 0.3 Conjugated Bilirubin 0.1 AST 8 L ALT 13 L Alkaline Phosphatase 63 C-Reactive Protein 3.52 Total Protein 5.6 L Albumin 2.5 L 25-OH Vitamin D Total 8.6 L Stool Campylobacter PCR Negative Stool Salmonella PCR Negative Stool Shigella PCR Negative Shiga Toxin (PCR) Negative Time Spent with Patient Time Spent with Patient: 25-34 minutes Time was spent: preparing to see the patient(eg.review tests), obtaining and/or reviewing separately otained hiistory, ordering medications,tests, procedures, referring, communicating with other health palliative care nurse practitioner, indepentently interpreting results, counseling the patient and care coordination
[2023-09-08] MEDS: REMDESIVIR 100 MG in Normal Saline 250 ML 250 MG IVPB (21:08)
[2023-09-09 02:45] VITALS: BP 120/75; PULSE 88; RESP 18; TEMP 36.9; O2SAT 95
[2023-09-09 06:51] LABS: Abs Immature Grans 0.01 10^3/uL (0.0-0.06); Absolute Basophil Count 0.02 10^3/uL (0.0-0.2); Absolute Lymphocyte Count 1.18 10^3/uL (1.2-3.4); Absolute Monocyte Count 0.32 10^3/uL (0.1-0.8); Basophils % 0.5; Eosinophils % 10.4; Immature Grans % 0.3; Lymphocytes % 30.8; MCH 29.5 pg (27.0-33.0); MCHC 33.3 % (32.0-36.0); MCV 89 fL (80-95); MPV 9.3 fL (8.0-11.0); Monocytes % 8.4; Neutrophils % 49.6; Platelet Count 231 10^3/uL (130-400); RBC 3.39 10^6/uL (3.93-5.22); RDW 13.8 % (11.7-14.6); WBC 3.83 10^3/uL (4.4-10.8)
[2023-09-09 07:06] LABS: INR 1.1 (0.9-1.1); Prothrombin Time 10.9 sec (9.1-11.1)
[2023-09-09 07:26] LABS: D-Dimer 559 ng/mlFEU (<500)
[2023-09-09 07:29] LABS: ALT 10 U/L (14-59); AST 10 U/L (15-37); Albumin 2.6 g/dL (3.4-5.0); Alkaline Phosphatase 60 U/L (46-116); Anion Gap 10.6 mmol/L (3-11); BUN 9 mg/dL (7-18); Bilirubin, Direct 0.1 mg/dL (0.0-0.2); Bilirubin, Total 0.3 mg/dL (0.2-1.0); C-Reactive Protein 2.22 mg/dL (<or=0.5); CO2 25.4 mmol/L (21.0-32.0); CREATININE 0.6 mg/dL (0.55-1.02); Calcium 8.3 mg/dL (8.5-10.1); Chloride 106 mmol/L (98-107); Estimated GFR 90.68 (mL/min/1.73m2); Glucose 92 mg/dL (74-106); Magnesium 1.9 mg/dL (1.8-2.4); Potassium 3.4 mmol/L (3.5-5.1); Sodium 142 mmol/L (136-145); Total Protein 5.7 g/dL (6.4-8.2)
[2023-09-09 07:58] VITALS: BP 131/78; PULSE 76; RESP 18; TEMP 37.1; O2SAT 95
[2023-09-09 08:00] VITALS: BP 131/78; PULSE 76; RESP 18; TEMP 37.1; O2SAT 95
[2023-09-09] MEDS: Normal Saline Flush 10 ML SYR IVP (08:01)
[2023-09-09] MEDS: Cholecalciferol (Vitamin D3) 1,000 UNIT TAB 2000 UNITS PO (08:01)
[2023-09-09] MEDS: Atorvastatin 40 MG TAB PO (08:01)
[2023-09-09] MEDS: Donepezil 5 MG TAB 10 MG PO (08:01)
[2023-09-09] MEDS: Zinc Sulfate 220 MG TAB PO (08:01)
[2023-09-09] MEDS: Escitalopram 10 MG TAB PO (08:01)
[2023-09-09] MEDS: Ferrous Sulfate 325 MG TAB PO (08:02)
[2023-09-09] MEDS: Clopidogrel 75 MG TAB PO (08:02)
[2023-09-09] MEDS: Ascorbic Acid 500 MG TAB PO (08:02)
[2023-09-09] MEDS: Pantoprazole 40 MG TABCR PO (08:02)
[2023-09-09] MEDS: Potassium Chloride 20 MEQ TABCR 40 MEQ PO (08:20)
[2023-09-09] MEDS: Enoxaparin 40 MG/0.4 ML SYR SC (09:46)
--- NOTE | 2023-09-09 10:39 | PDOC.CMPRO ---
Date of service: 09/09/23 Time of Service: 10:39 Care Management Progress Note Progress Note Text Progress Note Text: S/O:Aracely A: Aracely is an 78 year old female admitted on 09/06/23 with weakness found to have Covid P:Anticipate Lily will return home, possibly with new home health services, when medically cleared by provider. She will follow up with her community providers and plan of care and transport with family. CM will follow and continue to assess for discharge needs. SDOH(Care Management) Screening Will the Patient Participate in the Screening?: Declined to provide
--- NOTE | 2023-09-09 14:10 | DSE_ITS ---
Date of service: 09/09/23 Time of Service: 14:10 DS: Diagnosis Discharge Diagnosis (1) COVID-19: Status: Acute (2) Diarrhea: Status: Acute (3) Hypokalemia: Status: Acute (4) General weakness: Status: Acute (5) Ambulatory dysfunction: Status: Acute (6) Vitamin D deficiency: Status: Acute Discharge Plan Disposition Patient Disposition: Home W/Home Health Services Condition: Improving Discharge Details Reason For Visit: Weakness,Diarrhea Admit Date/Time: 09/06/23 20:12 Admit Provider: Morales Christopher Attending Provider: Morales Christopher [facility] Course: Ms Becerra is an 78 year old female with PMHx of recently reversed diverting colostomy (due to a benign obstructing lesion), TIA in the past, HTN, hyperlipidemia, GERD, mild dementia, who was admitted to [facility] hospitalist service on 09/06/23 with reports of diarrhea ever since the reversal of colos miguel angel, as well as weakness. The patient tested negative for C. diff, Salmonella, shigella, and campylobacter. She did have a fever. She did not have abdominal imaging since her COVID test came back positive serving as a good explanation for her symptoms. She was started remdesivir and antidiarrheals with a great improvement in her symptoms. She did have rhinorrhea, but otherwise no respiratory symptoms, with adequate oxygen saturations, no cough, and a negative CXR. Loperamide and tylenol were used to symptom management. She was evaluated by PT and was felt safe for discharge home with home health services. She received 3 days of remdesivir. She is medically stable for discharge and is agreeable to discharge. Her family was made aware of her COVID positive status and agreed to take care of her. She should follow up with her PCP in 1-2 weeks. Care for patient as well as completion of her discharge summary on day of discharge took 45 minutes. Home Meds and New Rx's Prescriptions: New acetaminophen 325 mg Tablet 650 mg PO Q4H PRN PRN (Reason: fever or pain) Qty: 30 0RF ascorbic acid (vitamin C) [Vitamin C] 500 mg Tablet 500 mg PO BID Qty: 14 0RF cholecalciferol (vitamin D3) 25 mcg (1,000 unit) Tablet 2,000 unit PO DAILY Qty: 60 0RF zinc oxide 20 % Ointment 1 applic topical TID Qty: 0 0RF clotrimazole 1 % Cream 1 applic topical TID Qty: 0 0RF vits A and D-white pet-lanolin Ointment 1 applic topical TID Qty: 0 0RF loperamide 2 mg Capsule 2 mg PO QLOOSE PRN (Reason: loose stool) Qty: 30 0RF melatonin 3 mg Tablet 6 mg PO HS PRN PRN (Reason: Insomnia) Qty: 30 0RF Continued clopidogrel [Plavix] 75 mg tablet 75 mg PO DAILY Hold Instructions: Pt Stopped/Never Started ferrous sulfate 325 mg (65 mg iron) tablet 325 mg PO DAILY escitalopram oxalate 10 mg tablet 10 mg PO DAILY atorvastatin 40 mg tablet 40 mg PO DAILY donepezil 10 mg tablet 10 mg PO DAILY Changed pantoprazole 40 mg tablet,delayed release (DR/EC) 40 mg PO DAILY Qty: 0 0RF Discontinued psyllium husk [Fiber (psyllium husk)] 0.52 gram capsule 0.52 g PO DAILY Discharge Instructions Instructions: Loperamide (By mouth), COVID-19 (Coronavirus Disease 2019) (DC) Additional Instructions: You must self-isolate for at 10 days since the beginning of your symptoms. Follow up with your PCP in 1-2 weeks Return to the hospital with any fever that does not respond to tylenol, bleeding, chest pain, or shortness of breath. Stand Alone Forms: Nursing Discharge Form Referrals: Juli Sam [Primary Care Provider] - 09/23/23 12:30 am Activity:: Activity as Tolerated Equipment/Supplies:: No Equipment Needed Diet:: As Tolerated Discharge Orders Discharge Orders: Discharge Order (Routine); Ordered 09/09/23 Ordered By: Laurie Marin Discharge Data Discharge Date/Time-TO BE ENTERED AT DEPARTURE: 09/09/23 16:43 DS: Summary Time Spent with Patient providing and/or coordinating discharge services: Greater than 30 minutes Status at Discharge Functional status at discharge: independent ambulation Overall status at discharge: patient is progressing back to baseline Mental Status: mental status grossly normal Speech and Movement: speech and movement normal Mood: congruent mood Affect: normal affect Quality:SDOH Health Related Social Needs: No Data to Display Exam Narrative Exam Narrative: General: a pleasant elderly female who is A&Ox2, NAD, laying comfortably in bed, feels warm to touch, looks better than yesterday HEENT: EOMI, MMM Heart: RRR, mildly tachycardic Lungs: CTAB Abdomen: soft, nontender, nondistended Extremities: trace edema BLEs Psych Mental Status: mental status grossly normal Speech and Movement: speech and movement normal Mood: congruent mood Affect: normal affect DS: Data Vitals/I&O Vitals and I&O: Vital Signs Temperature 37.1 C 09/09/23 08:00 Temperature Source Tympanic 09/09/23 08:00 Pulse 76 09/09/23 08:00 Pulse Rhythm Regular 09/09/23 08:00 Pulse 86 09/06/23 20:50 Respiratory Rate 18 09/09/23 08:00 Respiratory Effort Normal, Non-Labored 09/09/23 08:00 Respiratory Depth Normal 09/09/23 08:00 Respiratory Pattern Normal 09/09/23 08:00 Blood Pressure 131/78 09/09/23 08:00 Blood Pressure Mean 71 09/06/23 20:46 Blood Pressure Position Sitting 09/06/23 13:56 Pulse Oximetry 95 09/09/23 08:00 Oxygen Delivery Method Room Air 09/09/23 08:00 Oxygen Flow Rate 0 09/09/23 08:00 Pain Level 0 09/09/23 08:00 Intake & Output 09/08/23 09/09/23 09/09/23 23:59 11:59 23:59 Intake Total 500 / 710 130 / 130 Balance 500 / 710 130 / 130 Intake: IV 500 / 510 10 / 10 Oral 120 / 120 Other: Urine Color Yellow Yellow Urine Appearance Clear Urine Odor Normal None Comment pT is dry, and tried using the toilet. pT stated that she couldn't go. incont. in brief, pt toileted to bathroom and brief changed Stool Size Small Stool Characteristics Soft Formed Brown Green Voiding Methods Diaper Toilet Incontinent Data Completed and Pending Completed studies during hospitalization [Text1]: CXR: No acute findings. Labs on day of discharge: Labs from last 24 hours 09/09/23 05:55 WBC 3.83 L RBC 3.39 L Hgb 10.0 L Hct 30.0 L MCV 89 MCH 29.5 MCHC 33.3 RDW 13.8 Plt Count 231 MPV 9.3 Immature Gran % 0.3 Neutrophils % 49.6 Lymphocytes % 30.8 Monocytes % 8.4 Eosinophils % 10.4 Basophils % 0.5 Nucleated RBC % 0.0 Absolute Neutrophils 1.90 Absolute Lymphocytes 1.18 L Absolute Monocytes 0.32 Absolute Eosinophils 0.40 Absolute Basophils 0.02 PT 10.9 INR 1.1 D-Dimer 559 H Sodium 142 Potassium 3.4 L Chloride 106 Carbon Dioxide 25.4 Anion Gap 10.6 BUN 9 Creatinine 0.6 Est GFR (CKD-EPI 2020) 90.68 Glucose 92 Calcium 8.3 L Magnesium 1.9 Total Bilirubin 0.3 Conjugated Bilirubin 0.1 AST 10 L ALT 10 L Alkaline Phosphatase 60 C-Reactive Protein 2.22 H Total Protein 5.7 L Albumin 2.6 L Preliminary micro results at discharge 09/07/23 12:26 Blood Culture - Preliminary Blood NO GROWTH 24 HOURS 09/07/23 12:18 Blood Culture - Preliminary Blood NO GROWTH 24 HOURS PFSH All Active Problems (Updated 09/10/23 @ 00:06 by ABHISHEK CAO) Vitamin D deficiency (Acute) Hypokalemia (Acute) COVID-19 (Acute) General weakness (Acute) Diarrhea (Acute) Ambulatory dysfunction (Acute) Dysphasia (Acute) GERD (gastroesophageal reflux disease) (Chronic) Intraoperative bladder injury (Acute) Medical History Arthritis Anxiety Bladder dysfunction Seasonal allergies Mixed incontinence urge and stress Colostomy in place Bowel obstruction TIA (transient ischemic attack) Per son stated this was in 2017 Hyperlipidemia Hypertension Surgical History History of esophagogastroduodenoscopy (~07/2023) H/O: hysterectomy H/O bladder repair surgery H/O colectomy (~10/18/22) Social History Smoking/Tobacco Use Status: Never Smoking risk assessment performed?: Yes Alcohol Intake: former Drug use: Never Substance use type: does not use Housing: house Current gender identity: female Additional Social history: Unable to assess privately Time Spent with Patient Time Spent with Patient: 45-69 minutes Time was spent: preparing to see the patient(eg.review tests), obtaining and/or reviewing separately otained hiistory, ordering medications,tests, procedures, referring, communicating with other health zoo caretaker, indepentently interpreting results, counseling the patient and care coordination
[2023-09-09] MEDS: REMDESIVIR 100 MG in Normal Saline 250 ML 250 MG IVPB (14:59)
--- NOTE | 2023-09-09 17:09 | PDOC.CMDIS ---
Date of service: 09/09/23 Time of Service: 17:09 LACE Index Scoring Tool Questions: Length of Stay (in days): 3 Was the patient admitted via the E.D.?: Yes Comorbidities: Cerebrovascular Disease E.D. 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 She will follow up with her community providers and plan of care and transport with her brother. Patient/Family Education Needs: review of discharge instructions, activity, limitations, follow up plan, discuss Ask Me Three Services Needed at Discharge: Home Health Care Services SDOH Health Related Social Needs: No Data to Display
--- NOTE | 2023-09-10 07:33 | PDOC.HHF2F ---
Home Health Referral Home Health Orders Clinical synopsis of why skilled professionals are needed: Ms Becerra is an 78 year old female with PMHx of recently reversed diverting colostomy (due to a benign obstructing lesion), TIA in the past, HTN, hyperlipidemia, GERD, mild dementia, who was admitted to [facility] hospitalist service on 09/06/23 with reports of diarrhea ever since the reversal of colostomy, as well as weakness. The patient tested negative for C. diff, Salmonella, shigella, and campylobacter. She did have a fever. She did not have abdominal imaging since her COVID test came back positive serving as a good explanation for her symptoms. She was started remdesivir and antidiarrheals with a great improvement in her symptoms. She did have rhinorrhea, but otherwise no respiratory symptoms, with adequate oxygen saturations, no cough, and a negative CXR. Loperamide and tylenol were used to symptom management. She was evaluated by PT and was felt safe for discharge home with home health services. She received 3 days of remdesivir. She is medically stable for discharge and is agreeable to discharge. Her family was made aware of her COVID positive status and agreed to take care of her. She should follow up with her PCP in 1-2 weeks. Medical diagnosis necessitation home health referral: Generalized weakness in setting of COVID-19 Physical Therapist: Check all that apply Increase strength & endurance for safe mobility at home: Ordered To design/establish home maintenance program: Ordered Fall reduction therapy program for patient with history of frequent falls: Ordered Home safety evaluation and teaching/gait training including stair management (if applicable): Ordered Precautions List Precautions: Patient is on airborne precautions due to COVID-19 Home Bound Status Assistance of another person (Describe assistance and medical necessity): The patient has dementia and is dependent upon others for transfer Patient has a condition such that leaving home is medically contraindicated (Describe): COVID-19 Describe why leaving home would require a considerable and taxing effort: Confusion Encounter Date and Reason: I certify that a FTF encounter for this patient was performed on September 09, 2023 and that such encounter was related to the primary reason the patient requires home health services. The encounter was conducted in the following manner: By me as the certifying physician, FOOD SERVICE UTILITY WORKER, PA or By an inpatient physician, FOOD SERVICE UTILITY WORKER or PA during an inpatient stay who communicated findings to me, Certification And Authentication I certify that I composed the above information based on my clinical judgment relating to this patient's medical condition and, if applicable, clinical findings communicated to me by the NPP or inpatient physician who performed the FTF encounter. Name of Provider that will be monitoring home health services: Juli Sam
== END 2023-09-09 16:43 | disposition home health service (06) ==
LOC: ER 19:52 → MS 21:33
PROVIDERS: Internal Medicine; Admitting Provider General Practice; Emergency Provider Emergency Medicine; PCP Nurse Practitioner Family; Visit Provider General Practice
DX: R19.7 Diarrhea, unspecified; U07.1 COVID-19; R53.1 Weakness; E87.6 Hypokalemia; E55.9 Vitamin D deficiency, unspecified; K21.9 Gastro-esophageal reflux disease without esophagitis; R26.2 Difficulty in walking, not elsewhere classified; Z86.73 Personal history of transient ischemic attack (TIA), and cerebral infarction without residual deficits; F41.9 Anxiety disorder, unspecified; N39.46 Mixed incontinence; E78.5 Hyperlipidemia, unspecified; I10 Essential (primary) hypertension; Z87.891 Personal history of nicotine dependence
CPT/HCPCS: 00123; 36410; 36415; 80048; 80053; 80076; 82306; 83690; 84145; 86850; 86900; 86901; 87040; 87493; 87505; 87637; 96360; 96361; 96365; 96366; 97110; 97162; 97530; 99285; J1650; 71045; 81003; 81015; 82728; 83735; 84443; 85025; 85379; 85610; 85730; 86140; 94667; 99221; 99232; 99233; 99239; G0378; J0248; J3480

== ENCOUNTER 2023-09-23 15:47 | Outpatient (REF) | payer MEDICARE, SELFPAY ==
[2023-09-23 15:24] LABS: HCT 33.9 % (36.0-46.0); HGB 11.2 g/dL (11.2-15.7); MCH 29.4 pg (27.0-33.0); MCV 89 fL (80-95); Platelet Count 238 10^3/uL (130-400); RBC 3.81 10^6/uL (3.93-5.22); RDW-SD 45.3 fL; WBC 5.11 10^3/uL (4.4-10.8)
[2023-09-23 15:46] LABS: Anion Gap 8.3 mmol/L (3-11); BUN 15 mg/dL (7-18); CO2 26.7 mmol/L (21.0-32.0); CREATININE 0.7 mg/dL (0.55-1.02); Calcium 8.7 mg/dL (8.5-10.1); Chloride 108 mmol/L (98-107); Estimated GFR 87.37 (mL/min/1.73m2); Glucose 82 mg/dL (74-106); Potassium 4.2 mmol/L (3.5-5.1); Sodium 143 mmol/L (136-145)
== END 2023-09-23 15:48 | disposition home or self-care (01) ==
LOC: NCHCN 15:47
PROVIDERS: PCP Nurse Practitioner Family; Visit Provider Nurse Practitioner Family
DX: E87.6 Hypokalemia (principal); I10 Essential (primary) hypertension
CPT/HCPCS: 80048; 85027

== ENCOUNTER 2023-11-12 18:06 | Outpatient (REF) | payer MEDICARE, SELFPAY ==
[2023-11-12 19:13] LABS: Potassium 4.1 mmol/L (3.5-5.1)
== END 2023-11-12 18:07 | disposition home or self-care (01) ==
LOC: NCHCN 18:06
PROVIDERS: PCP Nurse Practitioner Family; Visit Provider Nurse Practitioner Family
DX: I10 Essential (primary) hypertension (principal)
CPT/HCPCS: 84132

== ENCOUNTER 2024-02-07 14:54 | Emergency (ER) | payer MEDICARE, SELFPAY ==
[2024-02-07] VITALS (21 sets, daily range): BP systolic 119–133; BP diastolic 40–65; PULSE 73–102; RESP 14–23; TEMP 36.1–37.3; O2SAT 95–97
--- NOTE | 2024-02-07 15:44 | ED.GENADUL_ITS ---
Discharge Plan Disposition Patient Disposition: Home Condition: Stable Discharge Details Clinical Impression: Osteoarthritis Primary Care Provider: Juli Gallardo ED Provider: John Soni Home Meds and New Rx's Prescriptions: New diclofenac sodium 1 % gel 2 g topical QID Qty: 100 0RF Rx Instructions: apply to single elbow, wrist or hand; for hand includes palm/fingers/back of hand Continued clopidogrel [Plavix] 75 mg tablet 75 mg PO DAILY Hold Instructions: Pt Stopped/Never Started ferrous sulfate 325 mg (65 mg iron) tablet 325 mg PO DAILY escitalopram oxalate 10 mg tablet 10 mg PO DAILY atorvastatin 40 mg tablet 40 mg PO DAILY potassium chloride 10 mEq tablet extended release 10 meq PO .every other Patient Comments: TAKE ONE TABLET BY MOUTH EVERY OTHER DAY donepezil 10 mg tablet 10 mg PO DAILY acetaminophen 325 mg Tablet 650 mg PO Q4H PRN PRN (Reason: fever or pain) Qty: 30 0RF ascorbic acid (vitamin C) [Vitamin C] 500 mg Tablet 500 mg PO BID Qty: 14 0RF cholecalciferol (vitamin D3) 25 mcg (1,000 unit) Tablet 2,000 unit PO DAILY Qty: 60 0RF pantoprazole 40 mg tablet,delayed release (DR/EC) 40 mg PO DAILY Qty: 0 0RF Discharge Instructions Instructions: Osteoarthritis, Diclofenac (Topical) Additional Instructions: You were seen in the emergency department for isolated bilateral knee pain, you state that you have been lazy this week and sitting in her chair a lot, you have no signs of blood clot in your legs, you have some joint line tenderness to bilateral knees and osteoarthritis seen on x-ray. I have prescribed you a topical gel that should relieve your knee pain if this is arthritis. Please monitor your condition closely, use Tylenol as needed for pain, please try to keep yourself moving, physical therapy visits or home health visits could be pursued by your primary care provider to aid in preventing further symptomatic arthritis. Please return for any increasing chest pain, dizziness, shortness of breath, gross swelling and skin changes to the lower legs, fever, ulcerations. Referrals: Juli Gallardo [Primary Care Provider] - Discharge Data Discharge Date/Time-TO BE ENTERED AT DEPARTURE: 02/07/24 18:31 HPI General Date/Time Provider Initiated Documentation: 02/07/24 15:25 . HPI Narrative: 78 year-old female presents to ED today by POV/ambulating with her son with a chief complaint of bilateral knee pain starting this morning. Patient states she's been pretty lazy this week and spending a lot of time in her recliner chair- notes some soreness in her knees when she's been getting up. Quality described as soreness, no radiation to chest pain with exertion, shortness of breath, falls, dizziness, trauma, leg swelling, medial thigh pain, calf swelling, ulcerations, redness, fever. Severity is described as moderate. Palliating factors include nothing specific attempted. Provoking factors include nothing specific. Patient not anticoagulated. Related Data Home Medications Medication Instructions Recorded Confirmed clopidogrel 75 mg tablet (Plavix) 75 mg PO DAILY 11/20/22 02/07/24 ferrous sulfate 325 mg (65 mg 325 mg PO DAILY 11/20/22 02/07/24 iron) tablet atorvastatin 40 mg tablet 40 mg PO DAILY 05/19/23 02/07/24 escitalopram oxalate 10 mg tablet 10 mg PO DAILY 05/19/23 02/07/24 donepezil 10 mg tablet 10 mg PO DAILY 09/06/23 02/07/24 acetaminophen 325 mg tablet 650 mg (2 x 325 mg) PO Q4H PRN PRN 09/09/23 02/07/24 fever or pain #30 tabs ascorbic acid (vitamin C) 500 mg 500 mg PO BID #14 tabs 09/09/23 02/07/24 tablet (Vitamin C) cholecalciferol (vitamin D3) 25 2,000 unit PO DAILY #60 tabs 09/09/23 02/07/24 mcg (1,000 unit) tablet pantoprazole 40 mg tablet,delayed 40 mg PO DAILY #0 tabs 09/09/23 02/07/24 release diclofenac sodium 1 % topical gel 2 g topical QID #100 grams 02/07/24 potassium chloride 10 mEq 10 meq PO .every other 02/07/24 02/07/24 tablet,extended release Previous Rx's Medication Instructions Recorded acetaminophen 325 mg tablet 650 mg (2 x 325 mg) PO Q4H PRN PRN 09/09/23 fever or pain #30 tabs ascorbic acid (vitamin C) 500 mg 500 mg PO BID #14 tabs 09/09/23 tablet (Vitamin C) cholecalciferol (vitamin D3) 25 2,000 unit PO DAILY #60 tabs 09/09/23 mcg (1,000 unit) tablet pantoprazole 40 mg tablet,delayed 40 mg PO DAILY #0 tabs 09/09/23 release diclofenac sodium 1 % topical gel 2 g topical QID #100 grams 02/07/24 Allergies Allergy/AdvReac Type Severity Reaction Status Date / Time codeine Allergy Psychosis Unverified 02/07/24 15:07 [From Tylenol-Codeine #3] General Stated Complaint: [facility] VICENTE: 3 Review of Systems All systems reviewed & are unremarkable except as noted in HPI and below Exam Narrative Exam Narrative: GENERAL APPEARANCE: Well-nourished, non-toxic, awake and alert, atraumatic, no acute distress. SKIN: Warm, pink, dry, intact, without rashes/lesions/ulcerations. HEAD: Normocephalic, atraumatic, normal hair distribution for gender/age. EYES: Pupils PERRLA, EOMs intact without nystagmus, normal conjunctiva, no exudates on lids/lashes. ENT: Nares patent, no circumoral cyanosis, no facial swelling NECK: Supple, trachea midline, painless cervical ROM. LUNGS/CHEST: Lungs CTA bilaterally- no rhonchi/rales/wheezes diffusely, non- labored respirations, normal A/P diameter, symmetrical expansion, no chest wall deformity HEART (CV/PV): Regular rate and rhythm without murmur, no peripheral edema, no JVD. ABDOMEN: Soft, non-distended, no guarding, no tenderness. MSK: Normal ROM, no swelling/deformity to bilateral UEs or LEs, moving all extremities without weakness, no cyanosis, spine midline without tenderness, normal curvature. KNEES: Bilateral joint line tenderness, negative Aden's, no ligamentous laxity with varus/valgus forces or anterior drawer/Taiwo's test bilaterally, no calf swelling, negative Homans bilaterally, no skin changes, no unilateral leg swelling, no medial thigh tenderness bilaterally, no crepitus NEURO: Mental Status AAOx4 - alert to person, place, time, events No facial droop, no forehead involvement. Motor: No focal weakness - strength 5/5 in bilateral UEs and LEs, proximal and distal, symmetric. Sensory: sensation intact to light touch globally. Gait normal: patient ambulated without ataxia into ED room. PSYCH: euthymic, cooperative, pleasant, appropriate speech Course Vital Signs Vital signs: Vital Signs Temperature 36.1 C L 02/07/24 15:01 Pulse 102 H 02/07/24 15:01 Respiratory Rate 18 02/07/24 15:01 Blood Pressure 133/65 02/07/24 15:01 Pulse Oximetry 96 02/07/24 15:01 Temperature 37.3 C 02/07/24 15:31 Temperature Source Oral 02/07/24 15:31 Pulse 100 H 02/07/24 15:31 Respiratory Rate 14 02/07/24 15:31 Respiratory Effort Normal 02/07/24 15:31 Respiratory Depth Normal 02/07/24 15:31 Respiratory Pattern Normal 02/07/24 15:31 Blood Pressure 133/65 02/07/24 15:01 Pulse Oximetry 96 02/07/24 15:31 Oxygen Delivery Method Room Air 02/07/24 15:31 Oxygen Flow Rate 0 02/07/24 15:01 Pain Level 5 02/07/24 15:31 Medical Decision Making This dictation utilizes [id number] dictation software and may contain unedited grammatical errors. 78 year-old female presents to ED today by POV/ambulating with her son with a chief complaint of bilateral knee pain starting this morning. Patient states she's been pretty lazy this week and spending a lot of time in her recliner chair- notes some soreness in her knees when she's been getting up. Quality described as soreness, no radiation to chest pain with exertion, shortness of breath, falls, dizziness, trauma, leg swelling, medial thigh pain, calf swelling, ulcerations, redness, fever. Severity is described as moderate. Palliating factors include nothing specific attempted. Provoking factors include nothing specific. Patients' medical history: [ ]. Family and social history: [ ]. Pertinent exam findings / vital signs include KNEES: Bilateral joint line tenderness, negative Aden's, no ligamentous laxity with varus/valgus forces or anterior drawer/Taiwo's test bilaterally, no calf swelling, negative Homans bilaterally, no skin changes, no unilateral leg swelling, no medial thigh tenderness bilaterally, no crepitus. Differential / pathologies of concern include osteoarthritis, sprain/strain, not DVT/SVT pathology. Diagnostic studies of: -XR Bilateral Knees w Standing/WB XR. -shows degenerative changes, no fractures Interventions of: -Topical diclofenac gel trial. ED Course/Assessment/Plan: 78-year-old female presents with bilateral knee pain, notes that she has been moving less this week than prior weeks, she has no signs of skin changes, unilateral leg swelling, varicosities, medial thigh tenderness or other signs of coagulopathy on exam. Patient was counseled on likely osteoarthritis source of pain, trial of topical diclofenac gel with strict return criteria for any acute worsening especially chest pain with walking and leg pain that radiates to chest pain with activity. Findings not consistent with SVT/DVT, fracture, NV compromise. Disposition of osteoarthritis. Patient verbalized understanding of the plan and return to ED criteria and engaged in shared decision making. Medical Records Medical records reviewed: Yes I reviewed the patient's medical records. Imaging Data Radiologic Study: Attestation: I personally reviewed and interpreted this imaging study as follows: Imaging: X-Ray Radiologist's impression: EXAM: XR KNEE RT 3V AP,LAT,PEGGY CLINICAL HISTORY: bilateral knee pain. TECHNIQUE: 2D digital imaging was performed. COMPARISON: No exams were available for comparison FINDINGS: 3 views No evidence fracture or joint effusion. No joint space narrowing. Bone density is age-appropriate. No osseous lesions. IMPRESSION: No significant osseous findings in the right knee. Radiologic Study #2: Attestation: I personally reviewed and interpreted this imaging study as follows: Radiologist's impression: EXAM: XR KNEE LT 3V AP,LAT,PEGGY CLINICAL HISTORY: bilateral knee pain. TECHNIQUE: 2D digital imaging was performed. COMPARISON: CR XR KNEE RT 3V AP,LAT,PEGGY from 02/07/2024 FINDINGS: 3 views No evidence of fracture nor joint effusion however, there are degenerative changes which are significantly more than evident in the opposite-right knee. Most prominent degenerative changes in the medial compartment and milder degenerative changes in the lateral compartment.. Bone density is age- appropriate. No osseous lesions. IMPRESSION: Degenerative changes which are most evident in the medial compartment. Radiologic Study #3: Attestation: I personally reviewed and interpreted this imaging study as follows: Imaging: X-Ray Radiologist's impression: EXAM: XR STANDING ALIGNMENT CLINICAL HISTORY: standing knee XR bilat 1 view. TECHNIQUE: 2D digital imaging was performed. COMPARISON: No exams were available for comparison FINDINGS: 3 views There is significant narrowing of the medial compartment of the left knee and milder degenerative changes in the lateral compartment. Medial lateral compartments of the opposite-right knee appear unremarkable. Both hips and ankles appear unremarkable. Bone density normal. No osseous lesions. Sacroiliac joints unremarkable. IMPRESSION: Degenerative changes in the left knee, most prominent in the medial compartment. Quality:SDOH Health Related Social Needs: No Data to Display PFSH All Active Problems (Updated 02/07/24 @ 18:12 by YAIMA Castillo) Osteoarthritis (Chronic) Vitamin D deficiency (Acute) Hypokalemia (Acute) General weakness (Acute) Diarrhea (Acute) Ambulatory dysfunction (Acute) Dysphasia (Acute) GERD (gastroesophageal reflux disease) (Chronic) Intraoperative bladder injury (Acute) Medical History Arthritis Anxiety Bladder dysfunction Seasonal allergies Mixed incontinence urge and stress Colostomy in place Bowel obstruction TIA (transient ischemic attack) Per son stated this was in 2017 Hyperlipidemia Hypertension Surgical History History of esophagogastroduodenoscopy (~07/2023) H/O: hysterectomy H/O bladder repair surgery H/O colectomy (~10/18/22) Social History Smoking/Tobacco Use Status: Never Smoking risk assessment performed?: Yes Alcohol Intake: former Drug use: Never Substance use type: does not use Housing: house Current gender identity: female Additional Social history: Unable to assess privately
--- NOTE | 2024-02-07 16:45 | DI.RAD_ITS ---
Exam(s) XR KNEE RT 3V AP,LAT,PEGGY EXAM: XR KNEE RT 3V AP,LAT,PEGGY CLINICAL HISTORY: bilateral knee pain. TECHNIQUE: 2D digital imaging was performed. COMPARISON: No exams were available for comparison FINDINGS: 3 views No evidence fracture or joint effusion. No joint space narrowing. Bone density is age-appropriate. No osseous lesions. IMPRESSION: No significant osseous findings in the right knee. DATA REPOSITORY: RADIATION DOSE DELIVERED:
--- NOTE | 2024-02-07 16:46 | DI.RAD_ITS ---
Exam(s) XR STANDING ALIGNMENT EXAM: XR STANDING ALIGNMENT CLINICAL HISTORY: standing knee XR bilat 1 view. TECHNIQUE: 2D digital imaging was performed. COMPARISON: No exams were available for comparison FINDINGS: 3 views There is significant narrowing of the medial compartment of the left knee and milder degenerative steven nges in the lateral compartment. Medial lateral compartments of the opposite-right knee appear unrem arkable. Both hips and ankles appear unremarkable. Bone density normal. No osseous lesions. Sacro iliac joints unremarkable. IMPRESSION: Degenerative changes in the left knee, most prominent in the medial compartment. DATA REPOSITORY: RADIATION DOSE DELIVERED:
--- NOTE | 2024-02-07 16:46 | DI.RAD_ITS ---
Exam(s) XR KNEE LT 3V AP,LAT,PEGGY EXAM: XR KNEE LT 3V AP,LAT,PEGGY CLINICAL HISTORY: bilateral knee pain. TECHNIQUE: 2D digital imaging was performed. COMPARISON: CR XR KNEE RT 3V AP,LAT,PEGGY from 02/07/2024 FINDINGS: 3 views No evidence of fracture nor joint effusion however, there are degenerative changes which are signific antly more than evident in the opposite-right knee. Most prominent degenerative changes in the media l compartment and milder degenerative changes in the lateral compartment.. Bone density is age-appro priate. No osseous lesions. IMPRESSION: Degenerative changes which are most evident in the medial compartment. DATA REPOSITORY: RADIATION DOSE DELIVERED:
== END 2024-02-07 18:31 | disposition home or self-care (01) ==
PROVIDERS: Emergency Provider Physician Assistant; PCP Nurse Practitioner Family
DX: M25.561 Pain in right knee (principal); M25.562 Pain in left knee; M17.0 Bilateral primary osteoarthritis of knee
CPT/HCPCS: 73562; 99284; 77073; 99283